=== PATIENT | female | born 1970 | race Caucasian/White ===

== ENCOUNTER 2022-04-07 22:03 | Inpatient (IN) ==
--- NOTE | 2022-04-07 22:55 | XRay Report ---
SINGLE VIEW CHEST CLINICAL HISTORY: Dyspnea. FINDINGS: An AP, portable, upright chest radiograph is obtained. No prior studies are available for c omparison at the time of dictation. The examination is degraded by portable technique and patient rot ation. The cardiomediastinal silhouette is partially obscured. There are multifocal bilateral airspa ce opacities. No large pleural effusion or pneumothorax is seen. The skeletal structures are osteopen ic. The bony thorax is grossly intact. Fusion hardware is noted at the cervicothoracic junction. IMPRESSION: Multifocal bilateral airspace opacities could represent pulmonary edema and/or multifocal pneumonia. Clinical correlation will be required and radiographic follow-up to resolution is recomme nded. ACT 112: Negative or not required by law. Electronically signed by: Jimmy Braun M.D. 04/07/2022 10:54 PM
[2022-04-07 23:07] LABS: Hematocrit (blood only) 38.4 % (34.1-44.9); Hemoglobin 13.4 g/dl (12.0-16.0); Mean Corpuscular Hemoglobin 30.4 pg (25.0-34.0); Mean Corpuscular Hgb Conc 34.9 g/dL (32.0-36.0); Mean Corpuscular Volume 87.1 fL (80.0-100.0); Mean Platelet Volume 9.1 fL (9.4-12.3); Platelet Count 257 K/uL (130-400); RDW Coefficient of Variation 12.8 % (11.5-14.5); RDW Standard Deviation 40.6 fL (36.4-46.3); Red Blood Count 4.41 M/uL (3.93-5.22); White Blood Count 14.29 K/ul (4.8-10.8)
[2022-04-07] MEDS ORDERED: ALBUT/IPRATROP 3MG/0.5MG NEB 3 ML VIAL NEB STA (23:08)
[2022-04-07] MEDS ORDERED: dexAMETHasone**PF** 10 MG/ML VIAL IV ONE (23:08)
[2022-04-07 23:26] LABS: Basophils # (auto) 0.02 K/uL (0-0.2); Basophils % (auto) 0.1 %; Immature Granulocytes # (auto) 0.13 K/uL (0.00-0.02); Immature Granulocytes % (auto) 0.9 %; Lymphocytes # (auto) 0.43 K/uL (1.2-3.4); Monocytes # (auto) 0.77 K/uL (0.24-0.82); Monocytes % (auto) 5.4 %; Neutrophils # (auto) 12.94 K/uL (1.4-6.5); Neutrophils % (auto) 90.6 %
[2022-04-07 23:32] LABS: Troponin I High Sensitivity 4.9 pg/ml (0-14)
[2022-04-07 23:35] LABS: Albumin Level 3.3 gm/dl (3.4-5.0); BUN Creatinine Ratio 22.7 (10-20); Bilirubin,Total 0.8 mg/dl (0.2-1.0); Calcium 8.3 mg/dl (8.5-10.1); Creatinine Clr Calc Pharmacy 165.5 ml/min; Est GFR (African American) 135.5 ml/min; Est GFR (Non-African American) 116.9 ml/min; Globulin 3.2 gm/dl (2.5-4.0); Magnesium 1.8 mg/dl (1.7-2.4); Potassium 3.9 mmol/L (3.5-5.1); Total Protein 6.5 gm/dl (6.0-8.3)
[2022-04-07] MEDS ORDERED: VANCOMYCIN CONSULT ACTIVE PRN (23:43)
[2022-04-07] MEDS ORDERED: SODIUM CHLORIDE 0.9% 1000ML 1,000 ML IV STA (23:43)
[2022-04-07] MEDS ORDERED: SODIUM CHLORIDE 0.9% 1000ML 500 ML IV ONE (23:43)
[2022-04-07] MEDS ORDERED: CEFEPIME 2,000 MG/20 ML VIAL IV STA (23:43)
[2022-04-07] MEDS ORDERED: DEXTROSE 50% 50 ML SYRINGE IV ONE (23:56)
--- NOTE | 2022-04-07 23:56 | Emergency Department Note ---
Impression & Plan COVID-19, Hypoxia, Pneumonia, Acute dehydration, Acute hyponatremia ED Provider Note INFORMANT: Patient ED PROVIDER(S): Miguel Natarajan MD CHIEF COMPLAINT: Shortness of breath PLAN: Disposition: Admitted Condition: Guarded Outpatient prescription management: none Referral: None MEDICAL DECISION MAKING: Patient presented because of shortness of breath. She had hypoxia that responded to high flow supplemental oxygen. The patient had a chest x-ray performed and was found to have multifocal pneumonia. She was recently diagnosed with COVID-19. This is very concerning. She was given IV Decadron and a DuoNeb. She was hydrated. On reassessment she did feel better. Oxygen saturations were holding stable. Chemistry panel did reveal hyponatremia as well as hypoglycemia. Recheck of the blood sugar revealed the hypoglycemia did be corrected. Patient did not receive any dextrose. Patient was found to have a moderate leukocytosis. Given her recent hospitalizations, leukocytosis and x- ray finding there was concern for possible secondary bacterial infection. Patient was covered with cefepime and vancomycin after blood cultures. CT of the chest was ordered. Patient will need further management in the hospital. Consultation was made with Dr. Anoop James of the [facility] service. He did request an ABG and this was ordered. Patient was evaluated in the ER for further management. Triage Nursing notes reviewed and agree them. Vital Signs: reviewed and remarkable for no significant abnormalities Differential diagnosis: COVID, Reactive airway disease, pneumonia, pneumothorax, COPD, CHF, infections, cardiac ischemia, pulmonary embolism, musculoskeletal, gastrointestinal, as well as other pathologies. Diagnostics interpreted by me: EC Lead ECG performed and revealed Normal sinus rhythm at 80, normal [place], QRS normal. No elevation or depression. No PACs or PVCs. Poor baseline data does affect interpretation. Cardiac Monitoring: Cardiac monitoring ordered by me: The patient was placed on continuous cardiac monitoring and observed. It revealed a normal sinus rhythm at 82 beats per minute without ectopy or evidence of dysrhythmia. Imaging studies: Chest x-ray concerning for multifocal pneumonia. CT imaging pending. HPI: The patient is a 52year old female who presents to the Emergency Room with complaints of shortness of breath. This started a few days ago and is felt to related to her recent COVID diagnosis. The patient was in [facility] and transferred to [facility] because of cerebral palsy and extremity/joint issues. She was exposed to COVID in her hospitalization at [place]. She became symptomatic about 3 to 4 days ago. She was found to have increased work of breathing and was 85% on room air per staff at rehab. She did respond to supplemental oxygen via a nonrebreather. Upon arrival here the patient was requiring 6 L of nasal cannula to maintain oxygen saturations in the 95% range. Patient does note history of COPD. The patient also notes the following associated symptoms, fatigue. The patient has also treated with an albuterol neb relieving factors. Current pain is rated as 0/10. Pt denies LOC, headache, fevers, chills, diaphoresis, visual changes, neck pain, chest pain, nausea, vomiting, abdominal pain, back pain, diarrhea urinary symptoms, numbness, new weakness, lymphadenopathy, rash, or other complaints. ROS: See above HPI for pertinent positives & negatives. A total of 10 systems reviewed and were otherwise negative. PAST MEDICAL HISTORY:See Below , cerebral palsy, COPD PAST SURGICAL HISTORY:See Below, FAMILY HISTORY:See Below SOCIAL HISTORY:See Below, smoker HOME MEDICATIONS:See Below ALLERGIES:See Below VITALS:See Below PHYSICAL EXAMINATION: GENERAL: Awake, alert, mild dyspneic-appearing, in no distress HENT: Normocephalic, atraumatic. Oropharynx unremarkable. EYES: Normal conjunctiva. Sclera non-icteric. NECK: Inspection normal. Non-tender. Supple. No nuchal rigidity. FROM. No masses. RESPIRATORY: No wheezes. Moderate bilateral scattered rales. Increased respiratory effort. CARDIAC: Normal rate. Normal rhythm. No murmurs. No rubs. Extremities warm and well perfused. Pulses equal. No JVD. GI: Soft, non-distended. No tenderness to palpation. No rebound or guarding. No masses. RECTAL: Deferred. MUSCULOSKELETAL: Atraumatic. Chest examination reveals no tenderness. The back is symmetrical on inspection without obvious abnormality. There is no CVA tenderness to palpation. No joint edema. LOWER EXTREMITIES: Calves are equal size bilaterally and non-tender. No edema. No discoloration. There is limited range of motion of the left hip which the patient states it is chronic. She also has difficulty bending the left knee due to contracture. There is moderate contractures noted in the right upper extre mity. NEURO: Relatively normal sensorium. No sensory or motor deficits noted. SKIN: No rash or jaundice noted. Miguel Natarajan MD Past Med/Surg History Social History Smoking Status: Former smoker Tobacco Type: Cigarettes Feels Safe at Home: Yes Results & Data (ED) Vital Signs Vital Signs - 24 hr 04/07/22 21:55 04/07/22 22:08 04/07/22 22:08 Temperature 36.8 C Temperature Source Oral Pulse Rate 81 Pulse Rate [Apical] Respiratory Rate 26 H Respiratory Effort / Characteristics Non-Labored Spontaneous Labored [place] Respiratory Depth Normal Deep Respiratory Pattern Regular Tachypnea Blood Pressure 97/64 L Blood Pressure [Right Arm] Blood Pressure Mean 75 Blood Pressure Mean [Right Arm] Pulse Oximetry 98 98 Oxygen Delivery Method Non-rebreather Non-rebreather Nasal Cannula Oxygen Flow Rate 10 10 6 Sepsis Recent Fever Within 48 Hours No Sepsis New/Unexplained Change in Mental Status No Sepsis Action Taken by Nursing No Action Required 04/07/22 22:08 04/07/22 22:15 04/08/22 00:08 Temperature Temperature Source Pulse Rate Pulse Rate [Apical] 79 82 Respiratory Rate 22 18 Respiratory Effort / Characteristics Respiratory Depth Respiratory Pattern Blood Pressure Blood Pressure [Right Arm] 111/50 L 138/78 Blood Pressure Mean Blood Pressure Mean [Right Arm] 70 98 Pulse Oximetry 98 98 93 Oxygen Delivery Method Nasal Cannula Nasal Cannula Oxygen Flow Rate 6 3 Sepsis Recent Fever Within 48 Hours Sepsis New/Unexplained Change in Mental Status Sepsis Action Taken by Nursing Laboratory Data Result diagrams: 04/07/22 22:55 04/07/22 22:55 Lab Results 04/07/22 04/07/22 04/07/22 Range/Units 22:55 22:55 22:55 WBC 14.29 H (4.8-10.8) K/ul RBC 4.41 (3.93-5.22) M/uL Hgb 13.4 (12.0-16.0) g/dl Hct 38.4 (34.1-44.9) % MCV 87.1 (80.0-100.0) fL MCH 30.4 (25.0-34.0) pg MCHC 34.9 (32.0-36.0) g/dL RDW Std Deviation 40.6 (36.4-46.3) fL RDW Coeff of Ronaldo 12.8 (11.5-14.5) % Plt Count 257 (130-400) K/uL MPV 9.1 L (9.4-12.3) fL Immature Gran % (Auto) 0.9 % Neut % (Auto) 90.6 % Lymph % (Auto) 3.0 % Daggett % (Auto) 5.4 % Eos % (Auto) 0.0 % Baso % (Auto) 0.1 % Neut # (Auto) 12.94 H (1.4-6.5) K/uL Lymph # (Auto) 0.43 L (1.2-3.4) K/uL Daggett # (Auto) 0.77 (0.24-0.82) K/uL Eos # (Auto) 0.00 (0-0.50) K/uL Baso # (Auto) 0.02 (0-0.2) K/uL Immature Gran # (Auto) 0.13 H (0.00-0.02) K/uL Sodium 127 L (136-145) mmol/L Potassium 3.9 (3.5-5.1) mmol/L Chloride 96 L (98-107) mmol/L Carbon Dioxide 20 L (21-32) mmol/L Anion Gap 11 (3-11) BUN 10 (6-23) mg/dl Creatinine 0.44 L (0.6-1.2) mg/dl Est Cr Clr Drug Dosing 165.5 ml/min Est GFR ( Amer) 135.5 ml/min Est GFR (Non-Af Amer) 116.9 ml/min BUN/Creatinine Ratio 22.7 H (10-20) Glucose 62 L (70-99(Fasting)) mg/dl POC Glucose (70-99) mg/dl Calcium 8.3 L (8.5-10.1) mg/dl Magnesium 1.8 (1.7-2.4) mg/dl Total Bilirubin 0.8 (0.2-1.0) mg/dl AST 40 H (13-39) U/L ALT 41 (7-52) U/L Alkaline Phosphatase 131 H (34-104) U/L Troponin I High Sens 4.9 (0-14) pg/ml B-Natriuretic Peptide 103 H (0-100) pg/ml Total Protein 6.5 (6.0-8.3) gm/dl Albumin 3.3 L (3.4-5.0) gm/dl Globulin 3.2 (2.5-4.0) gm/dl Albumin/Globulin Ratio 1.0 (0.9-2) Procalcitonin (0-0.5) ng/ml Adenovirus (PCR) (NotDetected) B. pertussis DNA (PCR) (NotDetected) B.parapertussis DNA PCR (NotDetected) C. pneumoniae DNA (PCR) (NotDetected) Coronavirus OC43 (PCR) (NotDetected) Coronavirus HKU1 (PCR) (NotDetected) Coronavirus 229E (PCR) (NotDetected) SARS-CoV-2 (PCR) (NotDetected) Coronavirus NL63 (PCR) (NotDetected) Human Metapneumovir PCR (NotDetected) Influenza Type A (PCR) (NotDetected) Influenza Type B (PCR) (NotDetected) M. pneumoniae (PCR) (NotDetected) Parainfluenza 1 (PCR) (NotDetected) Parainfluenza 2 (PCR) (NotDetected) Parainfluenza 3 (PCR) (NotDetected) Parainfluenza 4 (PCR) (NotDetected) RSV (PCR) (NotDetected) Entero/Rhino (PCR) (NotDetected) 04/07/22 04/07/22 04/08/22 Range/Units 22:55 22:55 00:02 WBC (4.8-10.8) K/ul RBC (3.93-5.22) M/uL Hgb (12.0-16.0) g/dl Hct (34.1-44.9) % MCV (80.0-100.0) fL MCH (25.0-34.0) pg MCHC (32.0-36.0) g/dL RDW Std Deviation (36.4-46.3) fL RDW Coeff of Ronaldo (11.5-14.5) % Plt Count (130-400) K/uL MPV (9.4-12.3) fL Immature Gran % (Auto) % Neut % (Auto) % Lymph % (Auto) % [place] % (Auto) % Eos % (Auto) % Baso % (Auto) % Neut # (Auto) (1.4-6.5) K/uL Lymph # (Auto) (1.2-3.4) K/uL [place] # (Auto) (0.24-0.82) K/uL Eos # (Auto) (0-0.50) K/uL Baso # (Auto) (0-0.2) K/uL Immature Gran # (Auto) (0.00-0.02) K/uL Sodium (136-145) mmol/L Potassium (3.5-5.1) mmol/L Chloride (98-107) mmol/L Carbon Dioxide (21-32) mmol/L Anion Gap (3-11) BUN (6-23) mg/dl Creatinine (0.6-1.2) mg/dl Est Cr Clr Drug Dosing ml/min Est GFR ( Amer) ml/min Est GFR (Non-Af Amer) ml/min BUN/Creatinine Ratio (10-20) Glucose (70-99(Fasting)) mg/dl POC Glucose 80 (70-99) mg/dl Calcium (8.5-10.1) mg/dl Magnesium (1.7-2.4) mg/dl Total Bilirubin (0.2-1.0) mg/dl AST (13-39) U/L ALT (7-52) U/L Alkaline Phosphatase (34-104) U/L Troponin I High Sens (0-14) pg/ml B-Natriuretic Peptide (0-100) pg/ml Total Protein (6.0-8.3) gm/dl Albumin (3.4-5.0) gm/dl Globulin (2.5-4.0) gm/dl Albumin/Globulin Ratio (0.9-2) Procalcitonin 0.11 (0-0.5) ng/ml Adenovirus (PCR) Not Detected (NotDetected) B. pertussis DNA (PCR) Not Detected (NotDetected) B.parapertussis DNA PCR Not Detected (NotDetected) C. pneumoniae DNA (PCR) Not Detected (NotDetected) Coronavirus OC43 (PCR) Not Detected (NotDetected) Coronavirus HKU1 (PCR) Not Detected (NotDetected) Coronavirus 229E (PCR) Not Detected (NotDetected) SARS-CoV-2 (PCR) DETECTED A* (NotDetected) Coronavirus NL63 (PCR) Not Detected (NotDetected) Human Metapneumovir PCR Not Detected (NotDetected) Influenza Type A (PCR) Not Detected (NotDetected) Influenza Type B (PCR) Not Detected (NotDetected) M. pneumoniae (PCR) Not Detected (NotDetected) Parainfluenza 1 (PCR) Not Detected (NotDetected) Parainfluenza 2 (PCR) Not Detected (NotDetected) Parainfluenza 3 (PCR) Not Detected (NotDetected) Parainfluenza 4 (PCR) Not Detected (NotDetected) RSV (PCR) Not Detected (NotDetected) Entero/Rhino (PCR) Not Detected (NotDetected) Administered Medications Vancomycin HCl 1,750 mg/ (Sodium Chloride) 535 mls @ 200 mls/hr IV NOW ONE Stop: 04/08/22 02:23 Last Admin: 04/08/22 00:11 Dose: 200 mls/hr Documented By: BERNARDO Discontinued Medications Albuterol (Albut/Ipratrop 3mg/0.5mg Neb 3 Ml Vial) 3 ml NEB NOW STA; Protocol Stop: 04/07/22 23:09 Last Admin: 04/07/22 23:33 Dose: 3 ml Documented By: BERNARDO Dexamethasone Sodium Phosphate (DexamethasonePf 10 Mg/Ml Vial) 6 mg IV NOW ONE Stop: 04/07/22 23:09 Last Admin: 04/07/22 23:32 Dose: 6 mg Documented By: BERNARDO Dextrose (Dextrose 50% 50 Ml Syringe) 25 ml IV NOW ONE Stop: 04/07/22 23:57 Last Admin: 04/08/22 00:34 Dose: Not Given Documented By: BERNARDO Cefepime HCl (Maxipime) 2,000 mg in 20 mls @ 5 mls/min IV NOW STA; Protocol Stop: 04/07/22 23:46 Last Admin: 04/08/22 00:09 Dose: 5 mls/min Documented By: BERNARDO Imaging Data Radiologist's Impression: Chest X-Ray 04/07/22 22:15 SINGLE VIEW CHEST CLINICAL HISTORY: Dyspnea. FINDINGS: An AP, portable, upright chest radiograph is obtained. No prior david dies are available for comparison at the time of dictation. The examination is degraded by portable technique and patient rotation. The cardiomediastinal silhouette is partially obscured. There are multifocal bilateral airspace opacities. No large pleural effusion or pneumothorax is seen. The skeletal structures are osteopenic. The bony thorax is grossly intact. Fusion hardware is noted at the cervicothoracic junction. IMPRESSION: Multifocal bilateral airspace opacities could represent pulmonary edema and/or multifocal pneumonia. Clinical correlation will be required and radiographic follow-up to resolution is recommended. ACT 112: Negative or not required by law. Electronically signed by: Jimmy Braun M.D. 04/07/2022 10:54 PM Discharge Plan Visit Data Chief Complaint: Shortness of Breath/Dyspnea Stated Complaint: COVID +/BREATHING DIFFICULTY ED Provider: Miguel Natarajan Discharge Problem: COVID-19, Hypoxia, Pneumonia, Acute dehydration, Acute hyponatremia Forms Stand Alone Forms: [facility] Referrals Referrals: Germain Skaggs MD [Primary Care Provider] -
[2022-04-07 23:57] LABS: Adenovirus PCR Not Detected (NotDetected); Bordetella parapertussis PCR Not Detected (NotDetected); Bordetella pertussis PCR Not Detected (NotDetected); Chlamydia pneumoniae PCR Not Detected (NotDetected); Coronavirus 229E PCR Not Detected (NotDetected); Coronavirus HKU1 PCR Not Detected (NotDetected); Coronavirus NL63 PCR Not Detected (NotDetected); Coronavirus OC43PCR Not Detected (NotDetected); Human Metapneumovirus PCR Not Detected (NotDetected); Influenza A PCR Not Detected (NotDetected); Influenza B PCR Not Detected (NotDetected); Mycoplasma pneumoniae PCR Not Detected (NotDetected); Parainfluenza Virus 1 PCR Not Detected (NotDetected); Parainfluenza Virus 2 PCR Not Detected (NotDetected); Parainfluenza Virus 3 PCR Not Detected (NotDetected); Parainfluenza Virus 4 PCR Not Detected (NotDetected); Respiratory Syncytial VirusPCR Not Detected (NotDetected); Rhinovirus/Enterovirus PCR Not Detected (NotDetected)
[2022-04-08 00:06] LABS: Coronavirus CoV-2 (COVID19)PCR DETECTED (NotDetected)
[2022-04-08] MEDS: VANCOMYCIN HCL 1,750 MG in SODIUM CHLORIDE 0.9% 500 ML IV ONE ×2 (00:11→01:42)
[2022-04-08] MEDS ORDERED: REMDESIVIR 200 MG in SODIUM CHLORIDE 0.9% 210 ML IV STA (00:41)
--- NOTE | 2022-04-08 01:27 | CT Scan Report ---
CT SCAN OF THE CHEST WITHOUT IV CONTRAST CLINICAL HISTORY: Covid pneumonia. COMPARISON STUDY: Chest x-ray dated 04/07/2022. TECHNIQUE: CT scan of the thorax was performed from the thoracic inlet to the upper abdomen. Images are reviewed in the axial, sagittal, and coronal planes. IV contrast was not administered for this ex amination as per the referring clinician. A dose lowering technique was utilized adhering [facility]. The examination is degraded by suboptimal patient positioning, motion, and streak a rtifact from metallic spinal hardware and the patient's arms which could not be elevated above the est. CT DOSE: 837.18 mGy.cm FINDINGS: Thyroid: Imaged portions of the thyroid gland are normal in size and attenuation. Thoracic aorta: The thoracic aorta is normal in caliber and demonstrates standard 3-vessel arch anato my. Heart: The heart is normal in size and without pericardial effusion. Lungs and pleural spaces: Evaluation of the lung parenchyma is significantly degraded by motion artif act. Mild emphysematous change is suggested at the apices. The trachea and central airways appear william ar. Multifocal groundglass consolidation is seen throughout both lungs, left significantly greater th an right. There are trace pleural effusions. Mediastinum: Mildly enlarged mediastinal lymph nodes measure up to 13 mm in short axis. Quin: Not well assessed without IV contrast. Axillae: There is no axillary lymphadenopathy. Upper abdomen: There is a moderate hiatal hernia. The distal esophagus is distended and filled with f luid. Cholecystectomy clips are noted. Skeletal structures: The skeletal structures are osteopenic. No lytic or blastic bony lesions are see n. Degenerative change and scoliosis is noted in the thoracic spine. Fusion hardware is noted at the cervicothoracic junction. IMPRESSION: 1. Severely streak and motion compromised examination. 2. Multifocal groundglass consolidation is seen throughout both lungs, left significantly greater mona n right. This likely represents an infectious/inflammatory pneumonitis. Clinical correlation will be required and radiographic follow-up to resolution is recommended. 3. Trace pleural effusions. 4. There is a moderate hiatal hernia and the distal esophagus is distended with fluid. Note that this may place the patient at risk for aspiration. 5. Additional findings as above. ACT 112: Negative or not required by law. Electronically signed by: Jimmy Braun M.D. 04/08/2022 1:24 AM
[2022-04-08] MEDS ORDERED: NSS + 20MEQ KCL 20 MEQ/1,000 ML BAG IV SCH (02:59)
[2022-04-08] MEDS ORDERED: VANCOMYCIN CONSULT ACTIVE PRN (02:59)
[2022-04-08] MEDS ORDERED: ONDANSETRON INJ 2 MG/ML 2 ML VIAL IV PRN (02:59)
[2022-04-08] MEDS ORDERED: ACETAMINOPHEN 325 MG TAB PO PRN (02:59)
--- NOTE | 2022-04-08 03:10 | History & Physical Report ---
Date of Service April 08, 2022 Assessment & Plan (1) Acute respiratory failure with hypoxia: Plan: Acute respiratory failure with hypoxia/COVID-19 infection/secondary bacterial pneumonia, left>> right/COPD- From the ED given dexamethasone 6 mg IV, vancomycin IV, cefepime IV and a DuoNeb treatment Dexamethasone 6 mg IV daily Remdesivir IV per protocol Vancomycin IV per pharmacokinetic monitoring Zosyn 4.5 g IV every 8 hours Guaifenesin extended release 12 mg p.o. twice daily Ventolin HFA 2 puffs 4 times daily, and every 2 hours as needed Nasal cannula oxygen, titrate to keep pulse ox 94-95% (2) COVID-19: (3) Bilateral pneumonia: (4) Acute hyponatremia: Plan: Sodium 127 upon admission Likely due to overall decreased oral intake due to illness NSS + KCl 20 milliequivalents at 80 mils per hour x1 L Repeat laboratories in a.m. (5) Cerebral palsy: Plan: Continue supportive medications (6) COPD (chronic obstructive pulmonary disease): (7) Seizure disorder: Plan: Seizure disorder/anxiety depression/bipolar disorder/PTSD- Continue repeat protozoal, bupropion, fluoxetine, gabapentin, hydroxyzine, lamotrigine, Vyvanse, (8) Anxiety with depression: (9) Bipolar disorder: (10) PTSD (post-traumatic stress disorder): (11) GERD (gastroesophageal reflux disease): Plan: Continue pantoprazole History of Present Illness Chief Complaint: The patient is referred to the emergency department from [facility] rehab facility due to shortness of breath and hypoxia, with recent diagnosis of COVID- 19 infection Primary Care Provider: Germain Skaggs MD The patient is a 52-year-old female with a past medical history including cerebral palsy, left femur fracture, COPD, tobacco use, seizure disorder, anxiety, depression, bipolar disorder, PTSD, GERD and recent COVID-19 diagnosis. The patient had been admitted to [facility] due to left femur fracture from approximately March 14 through March 30, and was then sent to [facility] rehab in [place]. During the time when she was at [facility], she was exposed to COVID-19, however, she did not have any symptoms until about 3 to 4 days ago. Since that time she been having worsening shortness of breath and dyspnea on exertion. Repeat COVID-19 test in the emergency department was positive this evening. Other significant abnormal laboratories: WBC 14.29, sodium 127, glucose 62, AST 40, albumin 3.3. Chest x-ray showed an extensive left lower lobe infiltrate and a smaller right lower lobe infiltrate. From the emergency department the patient received the following: DuoNeb, dexamethasone 6 mg IV, vancomycin IV, cefepime IV, normal saline 500 mL bolus. Allergies Allergy/AdvReac Type Severity Reaction Status Date / Time No Known Allergies Allergy Unverified 04/08/22 01:57 Home Medications Medication Instructions Recorded Confirmed Type Liquid Multivitamin 15 ml PO DAILY 04/08/22 04/08/22 History Magnesium Buffered 600 mg PO DAILY 04/08/22 04/08/22 History [place] Woman 2 ea PO DAILY 04/08/22 04/08/22 History Saccharomyces boulardii 250 mg 250 mg PO DAILY 04/08/22 04/08/22 History capsule acetaminophen 325 mg tablet 650 mg PO Q4 PRN pain scale 1-3 04/08/22 04/08/22 History (Tylenol) albuterol sulfate 90 mcg/actuation 2 puff inhalation Q4 04/08/22 04/08/22 History aerosol inhaler aripiprazole 20 mg tablet 20 mg PO DAILY 04/08/22 04/08/22 History ascorbic acid (vitamin C) 1,000 mg 1 g PO DAILY 04/08/22 04/08/22 History tablet baclofen 10 mg tablet 10 mg PO TID 04/08/22 04/08/22 History bupropion HCl 300 mg 24 hr tablet, 300 mg PO DAILY 04/08/22 04/08/22 History extended release cefdinir 300 mg capsule 300 mg PO ONCE 04/08/22 04/08/22 History cholecalciferol (vitamin D3) 50 50 mcg PO DAILY 04/08/22 04/08/22 History mcg (2,000 unit) capsule (Vitamin D3) cyclobenzaprine 10 mg tablet 10 mg PO Q8 04/08/22 04/08/22 History dextromethorphan-guaifenesin 20 105 ml PO Q6 04/08/22 04/08/22 History mg-200 mg/10 mL oral liquid in packet docusate sodium 100 mg capsule 100 mg PO BID 04/08/22 04/08/22 History doxycycline hyclate 100 mg capsule 100 mg PO ONCE 04/08/22 04/08/22 History enoxaparin 40 mg/0.4 mL 40 mg subcut DAILY 04/08/22 04/08/22 History subcutaneous syringe fluoxetine 40 mg capsule 40 mg PO BID 04/08/22 04/08/22 History gabapentin 400 mg capsule 400 mg PO BID 04/08/22 04/08/22 History hydroxyzine HCl 25 mg tablet 25 mg PO QID PRN Anxiety 04/08/22 04/08/22 History lamotrigine 150 mg tablet 150 mg PO Q12 04/08/22 04/08/22 History (Lamictal) lidocaine 5 % topical patch 1 patch transdermal QAM 04/08/22 04/08/22 History lisdexamfetamine 40 mg capsule 40 mg PO DAILY 04/08/22 04/08/22 History (Vyvanse) magnesium oxide 400 mg PO QAM 04/08/22 04/08/22 History methocarbamol 500 mg tablet 1,000 mg PO QID 04/08/22 04/08/22 History nicotine 14 mg/24 hr daily 1 patch transdermal DAILY 04/08/22 04/08/22 History transdermal patch ondansetron 4 mg disintegrating 4 mg PO Q4 PRN Nausea or Vomiting 04/08/22 04/08/22 History tablet oxycodone 7.5 mg tablet,oral ONLY 7.5 mg PO Q6H 04/08/22 04/08/22 History (not for feeding tubes) pantoprazole 40 mg tablet,delayed 40 mg PO DAILYBB 04/08/22 04/08/22 History release polyethylene glycol 3350 17 17 g PO .Q LUNCH PRN Constipation 04/08/22 04/08/22 History gram/dose oral powder (Miralax) sennosides 8.6 mg-docusate sodium 12 tab-cap PO DAILY 04/08/22 04/08/22 History 50 mg tablet (Senna with Docusate Sodium) tiotropium 2.5 mcg-olodaterol 2.5 2 puff inhalation DAILY 04/08/22 04/08/22 History mcg/actuation mist for inhalation (Stiolto Respimat) Past Med/Surg History Medical History (Updated 04/08/22 @ 03:04 by Anoop James MD) Anxiety with depression Bipolar disorder Cerebral palsy COPD (chronic obstructive pulmonary disease) GERD (gastroesophageal reflux disease) PTSD (post-traumatic stress disorder) Seizure disorder Social History Smoking Status: Former smoker Tobacco Type: Cigarettes Feels Safe at Home: Yes Review of Systems Review of Systems: The patient denies chest pain, palpitations, lower extremity swelling, sore throat, fevers, chills, sweats, nausea, vomiting, diarrhea , constipation, abdominal pain, pelvic pain, blood in urine or stool, dysuria, urinary frequency or urgency, loss of consciousness, rash, generalized arthralgias or myalgias, back or neck pain, or night sweats. The review of systems is otherwise negative other than for that already noted above, and at least 10 systems have been reviewed. Physical Exam 2 Physical Exam: The patient is awake, alert, well-developed and well-nourished, normocephalic and atraumatic, lying in bed and in no acute distress. HEENT--PERRL, EOMI, mucous membranes and oropharynx normal. Neck--supple. No JVD. No bruits. Thyroid normal, trachea midline, no adenopathy. Heart--normal S1 and S2, no murmurs rubs or gallops. Lungs--coarse breath sounds left significantly greater than right base. No respiratory distress, no accessory muscle use. Abdomen--normal bowel sounds and soft. Nontender. Nondistended, no hernias or masses, no organomegaly. Extremities--no cyanosis or clubbing. No edema. Dermatologic--normal skin turgor, normal color, no abnormal lymph nodes, no rash. Neurologic--limited exam Rheumatologic--limited exam Psychiatric--cooperative. Results & Data Results & Data ([facility]) Vital Signs (Past 12 Hours) Vital Signs Temp Pulse Pulse Resp BP BP Pulse Ox 04/08/22 01:00 76 17 102/54 L 93 04/08/22 00:08 82 18 138/78 93 04/07/22 22:15 98 04/07/22 22:08 79 22 111/50 L 98 04/07/22 22:08 98 04/07/22 22:08 04/07/22 21:55 36.8 C 81 26 H 97/64 L 98 O2 Del Method O2 Flow Rate 04/08/22 01:00 Nasal Cannula 3 04/08/22 00:08 Nasal Cannula 3 04/07/22 22:15 Nasal Cannula 6 04/07/22 22:08 04/07/22 22:08 Nasal Cannula 6 04/07/22 22:08 Non-rebreather 10 04/07/22 21:55 Non-rebreather 10 Laboratory Results Laboratory Results WBC 14.29 K/ul (4.8-10.8) H 04/07/22 22:55 RBC 4.41 M/uL (3.93-5.22) 04/07/22 22:55 Hgb 13.4 g/dl (12.0-16.0) 04/07/22 22:55 Hct 38.4 % (34.1-44.9) 04/07/22 22:55 MCV 87.1 fL (80.0-100.0) 04/07/22 22:55 MCH 30.4 pg (25.0-34.0) 04/07/22 22:55 MCHC 34.9 g/dL (32.0-36.0) 04/07/22 22:55 RDW Std Deviation 40.6 fL (36.4-46.3) 04/07/22 22:55 RDW Coeff of Ronaldo 12.8 % (11.5-14.5) 04/07/22 22:55 Plt Count 257 K/uL (130-400) 04/07/22 22:55 MPV 9.1 fL (9.4-12.3) L 04/07/22 22:55 Immature Gran % (Auto) 0.9 % 04/07/22 22:55 Neut % (Auto) 90.6 % 04/07/22 22:55 Lymph % (Auto) 3.0 % 04/07/22 22:55 [place]ug[place] % (Auto) 5.4 % 04/07/22 22:55 Eos % (Auto) 0.0 % 04/07/22 22:55 Baso % (Auto) 0.1 % 04/07/22 22:55 Neut # (Auto) 12.94 K/uL (1.4-6.5) H 04/07/22 22:55 Lymph # (Auto) 0.43 K/uL (1.2-3.4) L 04/07/22 22:55 Refugio # (Auto) 0.77 K/uL (0.24-0.82) 11/26/22 22:55 Eos # (Auto) 0.00 K/uL (0-0.50) 04/07/22 22:55 Baso # (Auto) 0.02 K/uL (0-0.2) 04/07/22 22:55 Immature Gran # (Auto) 0.13 K/uL (0.00-0.02) H 04/07/22 22:55 Sodium 127 mmol/L (136-145) L 04/07/22 22:55 Potassium 3.9 mmol/L (3.5-5.1) 04/07/22 22:55 Chloride 96 mmol/L (98-107) L 04/07/22 22:55 Carbon Dioxide 20 mmol/L (21-32) L 04/07/22 22:55 Anion Gap 11 (3-11) 04/07/22 22:55 BUN 10 mg/dl (6-23) 04/07/22 22:55 Creatinine 0.44 mg/dl (0.6-1.2) L 04/07/22 22:55 Est Cr Clr Drug Dosing 165.5 ml/min 04/07/22 22:55 Est GFR ( Amer) 135.5 ml/min 04/07/22 22:55 Est GFR (Non-Af Amer) 116.9 ml/min 04/07/22 22:55 BUN/Creatinine Ratio 22.7 (10-20) H 04/07/22 22:55 Glucose 62 mg/dl (70-99(Fasting)) L 04/07/22 22:55 POC Glucose 80 mg/dl (70-99) 04/08/22 00:02 Calcium 8.3 mg/dl (8.5-10.1) L 04/07/22 22:55 Magnesium 1.8 mg/dl (1.7-2.4) 04/07/22 22:55 Total Bilirubin 0.8 mg/dl (0.2-1.0) 04/07/22 22:55 AST 40 U/L (13-39) H 04/07/22 22:55 ALT 41 U/L (7-52) 04/07/22 22:55 Alkaline Phosphatase 131 U/L (34-104) H 04/07/22 22:55 Troponin I High Sens 4.9 pg/ml (0-14) 04/07/22 22:55 B-Natriuretic Peptide 103 pg/ml (0-100) H 04/07/22 22:55 Total Protein 6.5 gm/dl (6.0-8.3) 04/07/22 22:55 Albumin 3.3 gm/dl (3.4-5.0) L 04/07/22 22:55 Globulin 3.2 gm/dl (2.5-4.0) 04/07/22 22:55 Albumin/Globulin Ratio 1.0 (0.9-2) 04/07/22 22:55 Procalcitonin 0.11 ng/ml (0-0.5) 04/07/22 22:55 Adenovirus (PCR) Not Detected (NotDetected) 04/07/22 22:55 B. pertussis DNA (PCR) Not Detected (NotDetected) 04/07/22 22:55 B.parapertussis DNA PCR Not Detected (NotDetected) 04/07/22 22:55 C. pneumoniae DNA (PCR) Not Detected (NotDetected) 04/07/22 22:55 Coronavirus OC43 (PCR) Not Detected (NotDetected) 04/07/22 22:55 Coronavirus HKU1 (PCR) Not Detected (NotDetected) 04/07/22 22:55 Coronavirus 229E (PCR) Not Detected (NotDetected) 04/07/22 22:55 SARS-CoV-2 (PCR) DETECTED (NotDetected) A* 04/07/22 22:55 Coronavirus NL63 (PCR) Not Detected (NotDetected) 04/07/22 22:55 Human Metapneumovir PCR Not Detected (NotDetected) 04/07/22 22:55 Influenza Type A (PCR) Not Detected (NotDetected) 04/07/22 22:55 Influenza Type B (PCR) Not Detected (NotDetected) 04/07/22 22:55 M. pneumoniae (PCR) Not Detected (NotDetected) 04/07/22 22:55 Parainfluenza 1 (PCR) Not Detected (NotDetected) 04/07/22 22:55 Parainfluenza 2 (PCR) Not Detected (NotDetected) 04/07/22 22:55 Parainfluenza 3 (PCR) Not Detected (NotDetected) 04/07/22 22:55 Parainfluenza 4 (PCR) Not Detected (NotDetected) 04/07/22 22:55 RSV (PCR) Not Detected (NotDetected) 04/07/22 22:55 Entero/Rhino (PCR) Not Detected (NotDetected) 04/07/22 22:55 Impressions Chest X-Ray 04/07/22 22:15 SINGLE VIEW CHEST CLINICAL HISTORY: Dyspnea. FINDINGS: An AP, portable, upright chest radiograph is obtained. No prior studies are available for comparison at the time of dictation. The examination is degraded by portable technique and patient rotation. The cardiomediastinal silhouette is partially obscured. There are multifocal bilateral airspace opacities. No large pleural effusion or pneumothorax is seen. The skeletal structures are osteopenic. The bony thorax is grossly intact. Fusion hardware is noted at the cervicothoracic junction. IMPRESSION: Multifocal bilateral airspace opacities could represent pulmonary edema and/or multifocal pneumonia. Clinical correlation will be required and radiographic follow-up to resolution is recommended. ACT 112: Negative or not required by law. Electronically signed by: Jimmy Braun M.D. 04/07/2022 10:[address] 04/08/22 01:01 CT SCAN OF THE CHEST WITHOUT IV CONTRAST CLINICAL HISTORY: Covid pneumonia. COMPARISON STUDY: Chest x-ray dated 04/07/2022. TECHNIQUE: CT scan of the thorax was performed from the thoracic inlet to the upper abdomen. Images are reviewed in the axial, sagittal, and coronal planes. IV contrast was not administered for this examination as per the referring clinician. A dose lowering technique was utilized adhering to the principles of ALARA. The examination is degraded by suboptimal patient positioning, motion, and streak artifact from metallic spinal hardware and the patient's arms which could not be elevated above the chest. CT DOSE: 837.18 mGy.cm FINDINGS: Thyroid: Imaged portions of the thyroid gland are normal in size and attenuation. Thoracic aorta: The thoracic aorta is normal in caliber and demonstrates standard 3-vessel arch anatomy. Heart: The heart is normal in size and without pericardial effusion. Lungs and pleural spaces: Evaluation of the lung parenchyma is significantly degraded by motion artifact. Mild emphysematous change is suggested at the apices. The trachea and central airways appear clear. Multifocal groundglass consolidation is seen throughout both lungs, left significantly greater than right. There are trace pleural effusions. Mediastinum: Mildly enlarged mediastinal lymph nodes measure up to 13 mm in short axis. Quin: Not well assessed without IV contrast. Axillae: There is no axillary lymphadenopathy. Upper abdomen: There is a moderate hiatal hernia. The distal esophagus is distended and filled with fluid. Cholecystectomy clips are noted. Skeletal structures: The skeletal structures are osteopenic. No lytic or blastic bony lesions are seen. Degenerative change and scoliosis is noted in the thoracic spine. Fusion hardware is noted at the cervicothoracic junction. IMPRESSION: 1. Severely streak and motion compromised examination. 2. Multifocal groundglass consolidation is seen throughout both lungs, left significantly greater than right. This likely represents an infectious/inflammatory pneumonitis. Clinical correlation will be required and radiographic follow-up to resolution is recommended. 3. Trace pleural effusions. 4. There is a moderate hiatal hernia and the distal esophagus is distended with fluid. Note that this may place the patient at risk for aspiration. 5. Additional findings as above. ACT 112: Negative or not required by law. Electronically signed by: Jimmy Braun M.D. 04/08/2022 1:24 AM Code Status & VTE Plan Code Status Full code VTE Prophylaxis Plan VTE Prophylaxis will be ordered: Yes
--- NOTE | 2022-04-08 03:11 | Billing Data ---
Date of Service April 08, 2022 Coding Level of Care Code 80769 Initial Inpt Care Lvl 3
[2022-04-08] MEDS: ALBUTEROL HFA 8 GM INHALER INH SCH ×4 (05:19→19:37)
[2022-04-08] MEDS: PIPERACILLIN/TAZOBACTAM 4.5 GM in DEXTROSE 5% 100 ML IV SCH ×3 (06:37→22:53)
--- NOTE | 2022-04-08 07:11 | Electrocardiogram Report ---
Test Reason : Blood Pressure : / mmHG Vent. Rate : 080 BPM Atrial Rate : 441 BPM P-R Int : 000 ms QRS Dur : 080 ms QT Int : 410 ms P-R-T Axes : 000 016 014 degrees QTc Int : 472 ms Poor data quality, interpretation may be adversely affected Sinus rhythm Cannot rule out Inferior infarct , age undetermined Abnormal ECG No previous ECGs available Confirmed by Aguilar Ayon ([id number]) on 04/08/2022 7:11:12 AM Referred By: REFERRED SELF Confirmed By:Jeremiah Ayon
[2022-04-08] MEDS: dexAMETHasone 6 MG in SYRINGE 0 ML IV SCH (07:52)
[2022-04-08] MEDS ORDERED: VANCOMYCIN HCL 1,500 MG in SODIUM CHLORIDE 0.9% 500 ML IV SCH (08:00)
[2022-04-08 08:56] LABS: HCO3 ABG 20 mmol/L (19-24); Oxygen Saturation ABG 94.2 % (90-95); PCO2 ABG 31 mmHg (35-46); PO2 ABG 64 mmHg (80-95); pH ABG 7.41 (7.35-7.45)
[2022-04-08 08:57] LABS: Allen Test Pos (Pos)
[2022-04-08] MEDS ORDERED: ENOXAPARIN INJ 40 MG/0.4 ML SYR SQ SCH (09:00)
[2022-04-08 09:19] LABS: Albumin Globulin Ratio 1.1 (0.9-2); Albumin Level 3.1 gm/dl (3.4-5.0); BUN Creatinine Ratio 23.7 (10-20); Bilirubin,Total 0.5 mg/dl (0.2-1.0); C Reactive Protein 25.06 mg/dl (0-0.5); Creatinine Clr Calc Pharmacy 191.6 ml/min; Est GFR (African American) 142.2 ml/min; Est GFR (Non-African American) 122.7 ml/min; Globulin 2.9 gm/dl (2.5-4.0); Potassium 3.8 mmol/L (3.5-5.1)
[2022-04-08] MEDS ORDERED: CHOLECALCIFEROL 1,000 UNITS 25 MCG TAB PO SCH (10:30)
--- NOTE | 2022-04-08 13:48 | Pharmacy Report ---
Pharmacy Vanc AUC Short Note - Date of Service April 08, 2022 - Assessment & Plan Assessment 52 year old F started on vancomycin/zosyn for concerns of COVID pneumonia. PMHx significant for cerebral palsy, COPD, tobacco use, seizure disorder, and recent COVID diagnosis. Previously admitted to [facility] for left femur fracture from 03/14 - 03/30 and then sent to [facility] rehab after. Day # 1 of antimicrobial therapy. Plan Vancomycin * AUC/FELI is the preferred PK/PD target for vancomycin * AUC guided dosing is effective and associated with decreased risk of nephrotoxicity compared to traditional trough targets * Loading dose of 1750 mg x 1 given early this AM in ER - was then started on vancomycin 1500 mg iv q 12 hrs * This dosing is estimated to produce a trough level of 17 mcg/mL is predicted to achieve target AUC/FELI of 400-600 mg/L.hr and may be associated with a 13 % risk of nephrotoxicity * Plan to obtain a level prior to the 0800 dose tomorrow to ensure stable. Zosyn - dosed appropriately for renal function Pharmacy will continue to follow and will adjust dose/frequency as necessary. Thank you.
[2022-04-08] MEDS ORDERED: ASCORBIC ACID 500 MG TAB PO SCH (15:30)
[2022-04-08] MEDS ORDERED: buPROPion XL 300 MG TABCR PO SCH (15:45)
[2022-04-08] MEDS ORDERED: NON-FORMULARY MEDICATION (Cholecalciferol (Vitamin D3) [Vitamin D3] 50 mcg (2,000 unit) Ca PO SCH (15:45)
[2022-04-08] MEDS ORDERED: FUROSEMIDE INJ 20 MG/2 ML VIAL IV ONE (15:49)
--- NOTE | 2022-04-08 16:02 | XRay Report ---
XR chest 1V portable HISTORY: 52 years-old Female COVID+, worsening hypoxia acute cough COMPARISON: Chest CT of same day TECHNIQUE: AP view of the chest FINDINGS: Cardiac silhouette is enlarged. Interstitial coarsening with ill-defined left greater than right airs pace opacities are again noted, not significantly changed. No pneumothorax, or large pleural effusion . Degenerative changes of the shoulders and spine. Cervical thoracic fusion hardware. Hiatal hernia. IMPRESSION: 1. Interstitial coarsening with stable ill-defined mid to lower lung zone predominant airspace opacit ies suggestive of an infectious or inflammatory pneumonitis. 2. Hiatal hernia. 3. Cardiomegaly. ACT 112: Negative or not required by law. The above report was generated using voice recognition software. It may contain grammatical, syntax o r spelling errors. Electronically signed by: Yovani Thomas M.D. 04/08/2022 4:00 PM
[2022-04-08] MEDS: PANTOprazole 40 MG TAB PO SCH (17:41)
[2022-04-08] MEDS: [UNRECOGNIZED DRUG - OTHER] PO SCH (17:42)
[2022-04-08] MEDS: NON-FORMULARY MEDICATION (Tiotropium-Olodaterol [Stiolto Respimat] 2.5-2.5 mcg/actuation M INH SCH (17:42)
[2022-04-08] MEDS: NICOTINE 14 MG/24 HR PATCH TD SCH (17:42)
[2022-04-08] MEDS: VITAMIN C 1000 MG PO SCH (17:46)
[2022-04-08] MEDS: ARIPiprazole 10 MG TAB PO SCH (17:57)
--- NOTE | 2022-04-08 19:55 | Hospitalist Progress Note ---
Date of Service April 08, 2022 Assessment & Plan (1) Acute respiratory failure with hypoxia: Plan: 2nd to COVID-19 pneumonia. Can't rule out element of acute CHF - JVD present on exam, mild elevation in BNP, etc. Previously was taking large doses of lasix at home. This is in setting of known COPD. Cont steroids, Remdesivir, etc for COVID-19 pneumonia. Stop IVF, dose of IV lasix now. Repeat cxr today. Supportive care. (2) Pneumonia due to COVID-19 virus: Plan: mod-severe clinically and radiographically. CRP = 25. Moderate O2 requirement today. Day #2 of 5 of IV Remdesivir. Day #2 of 10 of Dexamethasone 6mg daily. add flutter valve. add incentive lynn. cont side positioning. cont scheduled bronchodilators. repeat cxr today. cont airborne precautions. patient is about 4-5 days into her illness course. likely exposure to COVID while at [facility] (roommate tested + for COVID). stop IV vanco - MRSA swab neg procal neg today; repeat procal in AM; if still negative then stop IV zosyn repeat CRP am (3) Acute hyponatremia: Plan: Sodium 127 upon admission Appeared volume contracted and was given isotonic fluid Na improved to 130 with IVF ?mild overload now? stop IVF lasix 20mg IV x 1 repeat BMP am send Urine Na, Urine osm (4) Cerebral palsy: Plan: resume baclofen 10mg TID for LLE contracture patient has very little use of both legs - does not ambulate (5) COPD (chronic obstructive pulmonary disease): Plan: 2nd long-standing tobacco usage cont usual daily inhalers cont bronchodilators scheduled pulmonary toilet dexamethasone IV see above (6) Seizure disorder: Plan: in light of known seizure d/o would stop Wellbutrin Cont gabapentin Cont lamictal I spoke with pt's mother by phone - pt has had seizures for many years but has not had one in 2-3 years seizure precautions (7) Anxiety with depression: Plan: I received her med rec from [facility] Oddly her external med history from her pharmacy shows she only received refills up until 12/2021 on all meds but nothing since will need to call her providers and/or pharmacy to verify what she is actually taking in meantime resume - abilify 20mg daily prozac 40mg daily (supposed to be BID but will hold off until verification) lamictal 150mg BID STOP wellbutrin given known seizure d/o (8) Bipolar disorder: Plan: as above (9) PTSD (post-traumatic stress disorder): (10) GERD (gastroesophageal reflux disease): Plan: Continue pantoprazole (11) Vitamin D insufficiency: Plan: 25-OH level = 27 start vitamin D 2000 IU daily (12) Femur fracture, left: Plan: by report nonoperative was seen/evaluated at [facility] earlier this month for such (13) Contracture of muscle, left thigh: Plan: very oddly patient was taking baclofen, flexeril, and methocarbamol to avoid polypharmacy simply resume baclofen - hold the other meds (14) DVT prophylaxis: Plan: due to high risk nature of VTE in setting of bed-bound status, COVID, etc -- use lovenox 40mg BID Plan pt's mother updated extensively by phone mother lives in [place] - currently has COVID herself very complicated care coordination and management - review of med rec from [facility], prolonged bedside visit, teaching incentive lynn use, speaking with mother, etc -- 70 minutes of care time today Admission and Anticipated Discharge Date Admission Date: April 08, 2022 Subjective patient c/o feeling dyspneic while laying in bed she is coughing but it is mild at best she admits to feeling very anxious about being sick with COVID has not smoked since being admitted to [facility] earlier in the month has smoked for many years she c/o severe left leg pain and spasms - this was one of the reasons why she went to [facility] takes pain meds/muscle relaxers for her left leg - it is quite contracted during the visit I attempted to teach her how to use her incentive spirometer - it was very challenging for her telemetry overnight - wnl Review of Systems Review of Systems: gen - no fevers, no chills; very tired, poor appetite neuro - mild intermittent headache, severe contracture with spasms of left leg cv - no cp, no orthopnea pulm - dyspneic GI - no vomiting musculo - myalgias Physical Exam Physical Exam: gen - tachypneic, mild retractions, very anxious, c/o pain LLE mouth - MM slightly dry neck - JVD present heart - RRR, s1 s2, no murmur lungs - diffuse crackles R>L; no wheeze; tachypnea; subcostal retractions abd - soft NT ND BS+ ext - contracture of LLE, pulses 2+ b/l feet, no edema skin - no rash neuro - increased tone LLE psych - very anxious Results & Data Results & Data ([facility]) Vital Signs (Past 12 Hours) Vital Signs Temp Pulse Pulse Resp BP Pulse Ox O2 Del Method 04/08/22 15:07 36.7 C 82 20 127/75 90 Nasal Cannula 04/08/22 14:47 82 20 92 Nasal Cannula 04/08/22 12:00 36.7 C 82 20 160/90 H 90 Nasal Cannula 04/08/22 10:36 75 22 94 Nasal Cannula 04/08/22 09:00 77 04/08/22 09:00 Nasal Cannula O2 Flow Rate 04/08/22 15:07 5 04/08/22 14:47 5 04/08/22 12:00 3 04/08/22 10:36 2.5 04/08/22 09:00 04/08/22 09:00 3 Laboratory Results Laboratory Results - last 24 hr 04/07/22 04/07/22 04/07/22 22:55 22:55 22:55 WBC 14.29 H RBC 4.41 Hgb 13.4 Hct 38.4 MCV 87.1 MCH 30.4 MCHC 34.9 RDW Std Deviation 40.6 RDW Coeff of Ronaldo 12.8 Plt Count 257 MPV 9.1 L Immature Gran % (Auto) 0.9 Neut % (Auto) 90.6 Lymph % (Auto) 3.0 Routt % (Auto) 5.4 Eos % (Auto) 0.0 Baso % (Auto) 0.1 Neut # (Auto) 12.94 H Lymph # (Auto) 0.43 L Routt # (Auto) 0.77 Eos # (Auto) 0.00 Baso # (Auto) 0.02 Immature Gran # (Auto) 0.13 H ABG pH ABG pCO2 ABG pO2 ABG HCO3 ABG O2 Saturation ABG Base Excess Jefferson Test Oxygen Given Sodium 127 L Potassium 3.9 Chloride 96 L Carbon Dioxide 20 L Anion Gap 11 BUN 10 Creatinine 0.44 L Est Cr Clr Drug Dosing 165.5 Est GFR ( Amer) 135.5 Est GFR (Non-Af Amer) 116.9 BUN/Creatinine Ratio 22.7 H Glucose 62 L POC Glucose Osmolality Calcium 8.3 L Magnesium 1.8 Total Bilirubin 0.8 AST 40 H ALT 41 Alkaline Phosphatase 131 H Troponin I High Sens 4.9 C-Reactive Protein B-Natriuretic Peptide 103 H Total Protein 6.5 Albumin 3.3 L Globulin 3.2 Albumin/Globulin Ratio 1.0 25-OH Vitamin D Total Procalcitonin Nasal Screen MRSA (PCR) Adenovirus (PCR) B. pertussis DNA (PCR) B.parapertussis DNA PCR C. pneumoniae DNA (PCR) Coronavirus OC43 (PCR) Coronavirus HKU1 (PCR) Coronavirus 229E (PCR) SARS-CoV-2 (PCR) Coronavirus NL63 (PCR) Human Metapneumovir PCR Influenza Type A (PCR) Influenza Type B (PCR) M. pneumoniae (PCR) Parainfluenza 1 (PCR) Parainfluenza 2 (PCR) Parainfluenza 3 (PCR) Parainfluenza 4 (PCR) RSV (PCR) Entero/Rhino (PCR) 04/07/22 04/07/22 04/08/22 22:55 22:55 00:02 WBC RBC Hgb Hct MCV MCH MCHC RDW Std Deviation RDW Coeff of Ronaldo Plt Count MPV Immature Gran % (Auto) Neut % (Auto) Lymph % (Auto) Routt % (Auto) Eos % (Auto) Baso % (Auto) Neut # (Auto) Lymph # (Auto) Routt # (Auto) Eos # (Auto) Baso # (Auto) Immature Gran # (Auto) ABG pH ABG pCO2 ABG pO2 ABG HCO3 ABG O2 Saturation ABG Base Excess Jefferson Test Oxygen Given Sodium Potassium Chloride Carbon Dioxide Anion Gap BUN Creatinine Est Cr Clr Drug Dosing Est GFR ( Amer) Est GFR (Non-Af Amer) BUN/Creatinine Ratio Glucose POC Glucose 80 Osmolality Calcium Magnesium Total Bilirubin AST ALT Alkaline Phosphatase Troponin I High Sens C-Reactive Protein B-Natriuretic Peptide Total Protein Albumin Globulin Albumin/Globulin Ratio 25-OH Vitamin D Total Procalcitonin 0.11 Nasal Screen MRSA (PCR) Adenovirus (PCR) Not Detected B. pertussis DNA (PCR) Not Detected B.parapertussis DNA PCR Not Detected C. pneumoniae DNA (PCR) Not Detected Coronavirus OC43 (PCR) Not Detected Coronavirus HKU1 (PCR) Not Detected Coronavirus 229E (PCR) Not Detected SARS-CoV-2 (PCR) DETECTED A* Coronavirus NL63 (PCR) Not Detected Human Metapneumovir PCR Not Detected Influenza Type A (PCR) Not Detected Influenza Type B (PCR) Not Detected M. pneumoniae (PCR) Not Detected Parainfluenza 1 (PCR) Not Detected Parainfluenza 2 (PCR) Not Detected Parainfluenza 3 (PCR) Not Detected Parainfluenza 4 (PCR) Not Detected RSV (PCR) Not Detected Entero/Rhino (PCR) Not Detected 04/08/22 04/08/22 04/08/22 08:44 08:49 09:02 WBC RBC Hgb Hct MCV MCH MCHC RDW Std Deviation RDW Coeff of Ronaldo Plt Count MPV Immature Gran % (Auto) Neut % (Auto) Lymph % (Auto) Routt % (Auto) Eos % (Auto) Baso % (Auto) Neut # (Auto) Lymph # (Auto) Routt # (Auto) Eos # (Auto) Baso # (Auto) Immature Gran # (Auto) ABG pH 7.41 ABG pCO2 31 L ABG pO2 64 L ABG HCO3 20 ABG O2 Saturation 94.2 ABG Base Excess -4.0 Jefferson Test Pos Oxygen Given 3 Liters O2 Sodium 130 L Potassium 3.8 Chloride 102 Carbon Dioxide 18 L Anion Gap 10 BUN 9 Creatinine 0.38 L Est Cr Clr Drug Dosing 191.6 Est GFR ( Amer) 142.2 Est GFR (Non-Af Amer) 122.7 BUN/Creatinine Ratio 23.7 H Glucose 105 H POC Glucose Osmolality 271 L Calcium 8.0 L Magnesium Total Bilirubin 0.5 AST 35 ALT 36 Alkaline Phosphatase 123 H Troponin I High Sens C-Reactive Protein 25.06 H B-Natriuretic Peptide Total Protein 6.0 Albumin 3.1 L Globulin 2.9 Albumin/Globulin Ratio 1.1 25-OH Vitamin D Total Procalcitonin Nasal Screen MRSA (PCR) Adenovirus (PCR) B. pertussis DNA (PCR) B.parapertussis DNA PCR C. pneumoniae DNA (PCR) Coronavirus OC43 (PCR) Coronavirus HKU1 (PCR) Coronavirus 229E (PCR) SARS-CoV-2 (PCR) Coronavirus NL63 (PCR) Human Metapneumovir PCR Influenza Type A (PCR) Influenza Type B (PCR) M. pneumoniae (PCR) Parainfluenza 1 (PCR) Parainfluenza 2 (PCR) Parainfluenza 3 (PCR) Parainfluenza 4 (PCR) RSV (PCR) Entero/Rhino (PCR) 04/08/22 04/08/22 09:02 14:40 WBC RBC Hgb Hct MCV MCH MCHC RDW Std Deviation RDW Coeff of Ronaldo Plt Count MPV Immature Gran % (Auto) Neut % (Auto) Lymph % (Auto) Routt % (Auto) Eos % (Auto) Baso % (Auto) Neut # (Auto) Lymph # (Auto) Routt # (Auto) Eos # (Auto) Baso # (Auto) Immature Gran # (Auto) ABG pH ABG pCO2 ABG pO2 ABG HCO3 ABG O2 Saturation ABG Base Excess Jefferson Test Oxygen Given Sodium Potassium Chloride Carbon Dioxide Anion Gap BUN Creatinine Est Cr Clr Drug Dosing Est GFR ( Amer) Est GFR (Non-Af Amer) BUN/Creatinine Ratio Glucose POC Glucose Osmolality Calcium Magnesium Total Bilirubin AST ALT Alkaline Phosphatase Troponin I High Sens C-Reactive Protein B-Natriuretic Peptide Total Protein Albumin Globulin Albumin/Globulin Ratio 25-OH Vitamin D Total 27.7 L Procalcitonin Nasal Screen MRSA (PCR) Negative Adenovirus (PCR) B. pertussis DNA (PCR) B.parapertussis DNA PCR C. pneumoniae DNA (PCR) Coronavirus OC43 (PCR) Coronavirus HKU1 (PCR) Coronavirus 229E (PCR) SARS-CoV-2 (PCR) Coronavirus NL63 (PCR) Human Metapneumovir PCR Influenza Type A (PCR) Influenza Type B (PCR) M. pneumoniae (PCR) Parainfluenza 1 (PCR) Parainfluenza 2 (PCR) Parainfluenza 3 (PCR) Parainfluenza 4 (PCR) RSV (PCR) Entero/Rhino (PCR) PG Care Time/CCT Total # of Minutes Spent Total Time Spent with Patient: Total time spent is greater than 50% in coordination of care (as documented) at patient's floor/unit and/or counseling patient: Prolonged Care Time Prolonged Care Time: Yes Total Prolonged Care Time: 70 Coding Level of Care Code 12611 Subseq Hosp Care Lvl 3 (25 - SIGNIFICANT, SEPARATELY IDENTIFIABLE ) Diagnoses Acute respiratory failure with hypoxia J96.01 Pneumonia due to COVID-19 virus U07.1; J12.82 Acute hyponatremia E87.1 Cerebral palsy G80.9 COPD (chronic obstructive pulmonary disease) J44.9 Seizure disorder G40.909 Anxiety with depression F41.8 Bipolar disorder F31.9 PTSD (post-traumatic stress disorder) F43.10 GERD (gastroesophageal reflux disease) K21.9 Vitamin D insufficiency E55.9 Femur fracture, left S72.92XA Contracture of muscle, left thigh M62.452 DVT prophylaxis Z29.9 Additional Codes Prolonged Care Time - Prolonged Care Time: Yes ([id number])
[2022-04-08] MEDS: BACLOFEN 10 MG TAB PO SCH ×3 (20:37→20:51)
[2022-04-08] MEDS: GABAPENTIN 400 MG CAP PO SCH (20:38)
[2022-04-08] MEDS: lamoTRIgine 25 MG TAB PO SCH (20:39)
[2022-04-08] MEDS: lamoTRIgine 100 MG TAB PO SCH (20:39)
[2022-04-08] MEDS: ENOXAPARIN INJ 40 MG/0.4 ML SYR SQ SCH (20:40)
[2022-04-08] MEDS ORDERED: GABAPENTIN 400 MG CAP PO SCH (21:00)
[2022-04-08] MEDS ORDERED: FLUoxetine HCL 20 MG CAP PO SCH (21:00)
[2022-04-08] MEDS ORDERED: LAMOTRIGINE 150 MG PO SCH (21:00)
[2022-04-09] MEDS ORDERED: KETOROLAC TROMETHAMINE 15 MG/ML VIAL IV ONE (01:08)
[2022-04-09] MEDS: PIPERACILLIN/TAZOBACTAM 4.5 GM in DEXTROSE 5% 100 ML IV SCH (05:22)
[2022-04-09] MEDS: ALBUTEROL HFA 8 GM INHALER INH SCH ×4 (05:49→18:01)
[2022-04-09] MEDS: PANTOprazole 40 MG TAB PO SCH (06:30)
[2022-04-09 06:52] LABS: Basophils # (auto) 0.03 K/uL (0-0.2); Basophils % (auto) 0.2 %; Eosinophils # (auto) 0.01 K/uL (0-0.50); Eosinophils % (auto) 0.1 %; Hematocrit (blood only) 35.1 % (34.1-44.9); Hemoglobin 12.4 g/dl (12.0-16.0); Immature Granulocytes # (auto) 0.12 K/uL (0.00-0.02); Immature Granulocytes % (auto) 0.9 %; Lymphocytes # (auto) 1.02 K/uL (1.2-3.4); Lymphocytes % (auto) 8.1 %; Mean Corpuscular Hemoglobin 30.1 pg (25.0-34.0); Mean Corpuscular Hgb Conc 35.3 g/dL (32.0-36.0); Mean Corpuscular Volume 85.2 fL (80.0-100.0); Mean Platelet Volume 9.1 fL (9.4-12.3); Monocytes # (auto) 0.82 K/uL (0.24-0.82); Monocytes % (auto) 6.5 %; Neutrophils # (auto) 10.67 K/uL (1.4-6.5); Neutrophils % (auto) 84.2 %; Platelet Count 317 K/uL (130-400); RDW Coefficient of Variation 12.8 % (11.5-14.5); RDW Standard Deviation 39.5 fL (36.4-46.3); Red Blood Count 4.12 M/uL (3.93-5.22); White Blood Count 12.67 K/ul (4.8-10.8)
[2022-04-09 07:25] LABS: Albumin Level 3.1 gm/dl (3.4-5.0); BUN Creatinine Ratio 34.2 (10-20); Bilirubin,Total 0.7 mg/dl (0.2-1.0); C Reactive Protein 20.85 mg/dl (0-0.5); Calcium 8.3 mg/dl (8.5-10.1); Creatinine Clr Calc Pharmacy 191.6 ml/min; Est GFR (African American) 142.2 ml/min; Est GFR (Non-African American) 122.7 ml/min; Globulin 3.1 gm/dl (2.5-4.0); Magnesium 1.6 mg/dl (1.7-2.4); Potassium 3.2 mmol/L (3.5-5.1); Total Protein 6.2 gm/dl (6.0-8.3)
[2022-04-09] MEDS ORDERED: VANCOMYCIN LEVEL ONE (07:30)
[2022-04-09 07:46] LABS: Appearance Urine Turbid (Clear); Bacteria Urine Automated Negative (Negative); Blood Urine Negative (Negative); Color Urine Dark Yellow; Epithelial Cell Urine Auto >30 /lpf (0-5); Glucose Urine UA Negative (Negative); Ketones Urine 4+ (Negative); Leukocyte Esterase Urine Negative (Negative); Nitrite Urine Negative (Negative); Protein Urine 1+ (Negative); Urobilinogen Urine Negative (Negative); pH Urine 6.5 (4.5-7.5)
[2022-04-09 07:49] LABS: Bilirubin Urine 1+ (Negative)
[2022-04-09 08:05] LABS: Amorphous Sediment Urine Present (None Prsent)
[2022-04-09 08:13] LABS: Cast Urine Automated 0 /lpf (0-5); Mucus Urine Present (None Prsent)
[2022-04-09] MEDS ORDERED: MULTI VIT W/MINERALS LIQUID 15 ML UDP PO SCH (09:00)
[2022-04-09] MEDS ORDERED: buPROPion XL 300 MG TABCR PO SCH (09:00)
[2022-04-09] MEDS: GABAPENTIN 400 MG CAP PO SCH ×2 (09:16→20:53)
[2022-04-09] MEDS: dexAMETHasone 6 MG in SYRINGE 0 ML IV SCH (09:16)
[2022-04-09] MEDS: VITAMIN D 50 MCG PO SCH (09:17)
[2022-04-09] MEDS: [UNRECOGNIZED DRUG - OTHER] PO SCH (09:18)
[2022-04-09] MEDS: VITAMIN C 1000 MG PO SCH (09:18)
[2022-04-09] MEDS: MULTIVITAMIN PO SCH (09:19)
[2022-04-09] MEDS: ENOXAPARIN INJ 40 MG/0.4 ML SYR SQ SCH ×2 (09:21→20:52)
[2022-04-09] MEDS: lamoTRIgine 25 MG TAB PO SCH ×2 (09:22→20:53)
[2022-04-09] MEDS: FLUoxetine HCL 20 MG CAP PO SCH (09:22)
[2022-04-09] MEDS: BACLOFEN 10 MG TAB PO SCH ×3 (09:23→20:53)
[2022-04-09] MEDS: MAGNESIUM OXIDE 400 MG TAB PO SCH (09:23)
[2022-04-09] MEDS: lamoTRIgine 100 MG TAB PO SCH ×2 (09:24→20:53)
[2022-04-09] MEDS: NON-FORMULARY MEDICATION (Tiotropium-Olodaterol [Stiolto Respimat] 2.5-2.5 mcg/actuation M INH SCH (09:25)
[2022-04-09] MEDS ORDERED: POTASSIUM CHLORIDE CRTAB 20 MEQ TABCR PO SCH (09:55)
[2022-04-09] MEDS ORDERED: oxyCODONE HCL IR 5 MG TAB (IMMEDIATE RELEASE) PO PRN (10:23)
[2022-04-09] MEDS: MAGNESIUM SULFATE / D5W 1 GM/100 ML BAG IV SCH ×2 (11:21→13:50)
[2022-04-09] MEDS: REMDESIVIR 100 MG in SODIUM CHLORIDE 0.9% 230 ML IV SCH (11:22)
[2022-04-09] MEDS: NICOTINE 14 MG/24 HR PATCH TD SCH (13:02)
[2022-04-09] MEDS: ARIPiprazole 10 MG TAB PO SCH (13:02)
[2022-04-09] MEDS: POTASSIUM CHLORIDE 20 MEQ/15 ML UDC PO SCH ×2 (13:02→20:53)
[2022-04-09] MEDS: oxyCODONE HCL IR 5 MG TAB (IMMEDIATE RELEASE) PO PRN ×2 (17:23→21:30)
[2022-04-09] MEDS: DICLOFENAC SOD 1% GEL 100 GM TUBE EXT SCH ×2 (17:59→20:52)
[2022-04-09] MEDS ORDERED: METHOCARBAMOL 500 MG TABLET PO PRN (19:51)
--- NOTE | 2022-04-09 21:31 | Hospitalist Progress Note ---
Date of Service April 09, 2022 Assessment & Plan (1) Acute respiratory failure with hypoxia: Plan: 2nd to COVID-19 pneumonia. Can't rule out that she had element of acute CHF - JVD was present on exam, mild elevation in BNP, etc. Previously was taking large doses of lasix at home. Pt reports hasn't had lasix in weeks. Has known COPD. Cont steroids, Remdesivir, etc for COVID-19 pneumonia. Volume status looks better today s/p IV lasix yesterday. O2 has been weaned off. (2) Pneumonia due to COVID-19 virus: Plan: mod-severe. CRP at admission 25; it is modestly improved today to 20. She is remarkably better today and O2 weaned off. Day #3 of 5 of IV Remdesivir. Day #3 of 10 of Dexamethasone 6mg daily. Cont flutter valve. Cont incentive lynn. cont side positioning. cont scheduled bronchodilators. defer on additional diuretics today. cxr yesterday with stable b/l infiltrates. cont airborne precautions. patient is about 5-6 days into her illness course. likely exposure to COVID while at [facility] (roommate tested + for COVID at [facility]). procal negative x 2 this admission - stop all abx; bacterial superinfection unlikely. will check a d-dimer in am and consider doppler of LLE due to multiple risk factors for DVT in setting of her COVID illness repeat CRP am (3) Acute hyponatremia: Plan: Sodium 127 upon admission Was given isotonic fluid and Na improved to 130 but appeared volume overloaded yesterday fluid stopped one-time IV lasix given yesterday today she appears more euvolemic urine osm quite high serum osm low urine Na high element of SIADH from COVID-19 infection? element of SIADH from psychotropic medications? fluid restrict to 1500cc/day BMP in am if Na remains low consider NaCL supplementation (4) Cerebral palsy: Plan: baclofen 10mg TID for LLE contracture patient has very little use of both legs - does not ambulate resume robaxin 500mg prn due to severe contracture & increased tone of legs, L>R (5) COPD (chronic obstructive pulmonary disease): Plan: 2nd long-standing tobacco usage cont usual daily inhalers cont bronchodilators scheduled pulmonary toilet dexamethasone IV see above (6) Seizure disorder: Plan: in light of known seizure d/o would stop Wellbutrin Cont gabapentin Cont lamictal I spoke with pt's mother by phone - pt has had seizures for many years but has not had one in 2-3 years seizure precautions (7) Anxiety with depression: Plan: I received her med rec from [facility] Oddly her external med history from her pharmacy shows she only received refills up until 12/2021 on all meds but nothing since will need to call her providers and/or pharmacy to verify what she is actually taking the patient and her mother both state compliance with all meds we have resumed - abilify 20mg daily prozac 40mg daily (supposed to be BID but will hold off until verification of meds) lamictal 150mg BID STOP wellbutrin given known seizure d/o (8) Bipolar disorder: Plan: as above (9) PTSD (post-traumatic stress disorder): (10) GERD (gastroesophageal reflux disease): Plan: Continue pantoprazole (11) Vitamin D insufficiency: Plan: 25-OH level = 27 start vitamin D 2000 IU daily (12) Femur fracture, left: Plan: by report nonoperative management was seen/evaluated at [facility] earlier this month for such request records and imaging from 03/2022 admission to [facility] (13) Contracture of muscle, left thigh: Plan: very oddly patient was taking baclofen, flexeril, and methocarbamol all at once?? to avoid polypharmacy simply resume baclofen 10mg TID and use methocarbamol PRN only (14) DVT prophylaxis: Plan: due to high risk nature of VTE in setting of bed-bound status, COVID, etc -- use lovenox 40mg BID consider doppler LLE check a baseline d-dimer Plan pt's mother updated extensively by phone yesterday and today mother lives in [place] - currently has COVID herself Admission and Anticipated Discharge Date Admission Date: April 08, 2022 Subjective tele stable overnight she feels MUCH better today dyspnea resolved no orthopnea no PND she is still coughing minimal sputum main complaint is that of left leg pain oxycodone helps pain started early March just prior to admission to [facility] pain is worst anterior distal left thigh she blames pain on contracture does confirm she was taking baclofen AND robaxin concurrently prior to this admission I spoke with pt's mother - patient apparently had MRI of l-spine and other imaging of leg at [facility] recently even had evaluation by neurosurgery while at [facility] for l-spine issues?? Review of Systems Review of Systems: gen - no fevers, no chills; appetite better today cv - no chest pain pulm - no dyspnea GI - no N/V Physical Exam Physical Exam: gen - looks MUCH better today mouth - MM dry neck - no JVD heart - RRR, s1 s2, no murmur lungs - diffuse dry crackles R>L bases; no wheeze; increased work of breathing and tachypnea resolved abd - soft NT ND BS+ ext - contracture of LLE, pulses 2+ b/l feet, no edema skin - no rash neuro - increased tone LLE; unable to straighten her left leg due to contracture psych - a/o x 3; anxiety improved Results & Data Results & Data ([facility]) Vital Signs (Past 12 Hours) Vital Signs Temp Pulse Pulse Resp BP Pulse Ox O2 Del Method 04/09/22 19:54 37.5 C 80 18 115/72 99 Room Air 04/09/22 18:08 76 04/09/22 18:02 82 16 96 Room Air 04/09/22 15:23 81 20 157/85 H 97 Room Air 04/09/22 13:52 79 04/09/22 13:31 Nasal Cannula 04/09/22 11:33 80 18 100 Nasal Cannula 04/09/22 11:31 84 20 138/83 100 Nasal Cannula O2 Flow Rate 04/09/22 19:54 04/09/22 18:08 04/09/22 18:02 04/09/22 15:23 04/09/22 13:52 04/09/22 13:31 2 04/09/22 11:33 5 04/09/22 11:31 5 Laboratory Results Laboratory Results - last 24 hr 04/09/22 04/09/22 04/09/22 05:55 05:55 05:55 WBC 12.67 H RBC 4.12 Hgb 12.4 Hct 35.1 MCV 85.2 MCH 30.1 MCHC 35.3 RDW Std Deviation 39.5 RDW Coeff of Ronaldo 12.8 Plt Count 317 MPV 9.1 L Immature Gran % (Auto) 0.9 Neut % (Auto) 84.2 Lymph % (Auto) 8.1 Gibson % (Auto) 6.5 Eos % (Auto) 0.1 Baso % (Auto) 0.2 Neut # (Auto) 10.67 H Lymph # (Auto) 1.02 L Gibson # (Auto) 0.82 Eos # (Auto) 0.01 Baso # (Auto) 0.03 Immature Gran # (Auto) 0.12 H Sodium 129 L Potassium 3.2 L Chloride 97 L Carbon Dioxide 21 Anion Gap 11 BUN 13 Creatinine 0.38 L Est Cr Clr Drug Dosing 191.6 Est GFR ( Amer) 142.2 Est GFR (Non-Af Amer) 122.7 BUN/Creatinine Ratio 34.2 H Glucose 58 L POC Glucose Calcium 8.3 L Magnesium 1.6 L Total Bilirubin 0.7 AST 36 ALT 34 Alkaline Phosphatase 125 H Total Creatine Kinase 183 C-Reactive Protein 20.85 H Total Protein 6.2 Albumin 3.1 L Globulin 3.1 Albumin/Globulin Ratio 1.0 Procalcitonin 0.10 Urine Color Urine Appearance Urine pH Ur Specific [place] Urine Protein Urine Glucose (UA) Urine Ketones Urine Blood Urine Nitrite Urine Bilirubin Urine Urobilinogen Ur Leukocyte Esterase Urine WBC (Auto) Urine RBC (Auto) U Hyaline Cast (Auto) U Epithel Cells (Auto) Urine Bacteria (Auto) Ur Renal Epithelial Cell Urine Crystals Amorphous Sediment Urine Mucus Urine Osmolality Ur Random Sodium 04/09/22 04/09/22 04/09/22 06:25 06:25 06:25 WBC RBC Hgb Hct MCV MCH MCHC RDW Std Deviation RDW Coeff of Ronaldo Plt Count MPV Immature Gran % (Auto) Neut % (Auto) Lymph % (Auto) Gibson % (Auto) Eos % (Auto) Baso % (Auto) Neut # (Auto) Lymph # (Auto) Gibson # (Auto) Eos # (Auto) Baso # (Auto) Immature Gran # (Auto) Sodium Potassium Chloride Carbon Dioxide Anion Gap BUN Creatinine Est Cr Clr Drug Dosing Est GFR ( Amer) Est GFR (Non-Af Amer) BUN/Creatinine Ratio Glucose POC Glucose Calcium Magnesium Total Bilirubin AST ALT Alkaline Phosphatase Total Creatine Kinase C-Reactive Protein Total Protein Albumin Globulin Albumin/Globulin Ratio Procalcitonin Urine Color Dark Yellow Urine Appearance Turbid A Urine pH 6.5 Ur Specific [place] 1.030 Urine Protein 1+ H Urine Glucose (UA) Negative Urine Ketones 4+ H Urine Blood Negative Urine Nitrite Negative Urine Bilirubin 1+ H Urine Urobilinogen Negative Ur Leukocyte Esterase Negative Urine WBC (Auto) 5-10 H Urine RBC (Auto) 5-10 H U Hyaline Cast (Auto) 0 U Epithel Cells (Auto) >30 H Urine Bacteria (Auto) Negative Ur Renal Epithelial Cell Not Reportable Urine Crystals Not Reportable Amorphous Sediment Present A Urine Mucus Present A Urine Osmolality 620 Ur Random Sodium 87 04/09/22 21:01 WBC RBC Hgb Hct MCV MCH MCHC RDW Std Deviation RDW Coeff of Ronaldo Plt Count MPV Immature Gran % (Auto) Neut % (Auto) Lymph % (Auto) Gibson % (Auto) Eos % (Auto) Baso % (Auto) Neut # (Auto) Lymph # (Auto) Gibson # (Auto) Eos # (Auto) Baso # (Auto) Immature Gran # (Auto) Sodium Potassium Chloride Carbon Dioxide Anion Gap BUN Creatinine Est Cr Clr Drug Dosing Est GFR ( Amer) Est GFR (Non-Af Amer) BUN/Creatinine Ratio Glucose POC Glucose 88 Calcium Magnesium Total Bilirubin AST ALT Alkaline Phosphatase Total Creatine Kinase C-Reactive Protein Total Protein Albumin Globulin Albumin/Globulin Ratio Procalcitonin Urine Color Urine Appearance Urine pH Ur Specific [place] Urine Protein Urine Glucose (UA) Urine Ketones Urine Blood Urine Nitrite Urine Bilirubin Urine Urobilinogen Ur Leukocyte Esterase Urine WBC (Auto) Urine RBC (Auto) U Hyaline Cast (Auto) U Epithel Cells (Auto) Urine Bacteria (Auto) Ur Renal Epithelial Cell Urine Crystals Amorphous Sediment Urine Mucus Urine Osmolality Ur Random Sodium PG Care Time/CCT Total # of Minutes Spent Total Time Spent with Patient: Total time spent is greater than 50% in coordination of care (as documented) at patient's floor/unit and/or counseling patient: Coding Level of Care Code 24286 Subseq Hosp Care Lvl 3 Diagnoses Acute respiratory failure with hypoxia J96.01 Pneumonia due to COVID-19 virus U07.1; J12.82 Acute hyponatremia E87.1 Cerebral palsy G80.9 COPD (chronic obstructive pulmonary disease) J44.9 Seizure disorder G40.909 Anxiety with depression F41.8 Bipolar disorder F31.9 PTSD (post-traumatic stress disorder) F43.10 GERD (gastroesophageal reflux disease) K21.9 Vitamin D insufficiency E55.9 Femur fracture, left S72.92XA Contracture of muscle, left thigh M62.452 DVT prophylaxis Z29.9
[2022-04-10] MEDS: oxyCODONE HCL IR 5 MG TAB (IMMEDIATE RELEASE) PO PRN ×4 (02:53→21:32)
[2022-04-10] MEDS: ALBUTEROL HFA 8 GM INHALER INH SCH (06:03)
[2022-04-10] MEDS: PANTOprazole 40 MG TAB PO SCH (06:31)
[2022-04-10 07:08] LABS: C Reactive Protein 17.28 mg/dl (0-0.5); Calcium 8.4 mg/dl (8.5-10.1); Creatinine Clr Calc Pharmacy 173.4 ml/min; Est GFR (African American) 137.5 ml/min; Est GFR (Non-African American) 118.7 ml/min; Magnesium 1.9 mg/dl (1.7-2.4); Potassium 3.8 mmol/L (3.5-5.1)
[2022-04-10] MEDS: DICLOFENAC SOD 1% GEL 100 GM TUBE EXT SCH ×4 (07:29→21:32)
[2022-04-10] MEDS: POTASSIUM CHLORIDE 20 MEQ/15 ML UDC PO SCH ×4 (07:31→21:37)
[2022-04-10] MEDS: NON-FORMULARY MEDICATION (Tiotropium-Olodaterol [Stiolto Respimat] 2.5-2.5 mcg/actuation M INH SCH (07:34)
[2022-04-10] MEDS: FLUoxetine HCL 20 MG CAP PO SCH (07:34)
[2022-04-10] MEDS: lamoTRIgine 100 MG TAB PO SCH ×2 (07:34→21:31)
[2022-04-10] MEDS: GABAPENTIN 400 MG CAP PO SCH ×2 (07:35→21:30)
[2022-04-10] MEDS: ARIPiprazole 10 MG TAB PO SCH (07:35)
[2022-04-10] MEDS: BACLOFEN 10 MG TAB PO SCH ×3 (07:36→21:32)
[2022-04-10] MEDS: lamoTRIgine 25 MG TAB PO SCH ×2 (07:36→21:37)
[2022-04-10] MEDS: NICOTINE 14 MG/24 HR PATCH TD SCH (07:37)
[2022-04-10] MEDS: MAGNESIUM OXIDE 400 MG TAB PO SCH (07:37)
[2022-04-10] MEDS: [UNRECOGNIZED DRUG - OTHER] PO SCH (07:38)
[2022-04-10] MEDS: VITAMIN C 1000 MG PO SCH (07:39)
[2022-04-10] MEDS: MULTIVITAMIN PO SCH (07:40)
[2022-04-10] MEDS: VITAMIN D 50 MCG PO SCH (07:41)
[2022-04-10 08:01] LABS: D Dimer 1050 ug/L FEU (0-500)
[2022-04-10] MEDS: dexAMETHasone 6 MG in SYRINGE 0 ML IV SCH (09:28)
[2022-04-10] MEDS: ENOXAPARIN INJ 40 MG/0.4 ML SYR SQ SCH ×2 (09:29→21:31)
--- NOTE | 2022-04-10 09:29 | Ultrasound Report ---
ULTRASOUND LEFT LOWER EXTREMITY VENOUS CLINICAL HISTORY: Left leg/thigh pain. COMPARISON STUDY: No priors. TECHNIQUE: Real-time, grayscale, and color Doppler sonography of the deep veins of the left lower ext remity was performed from the inguinal crease to the calf. Compression and augmentation were utilized . FINDINGS: There is no sonographic evidence of deep venous thrombosis identified in the left lower ext remity. The common femoral, superficial femoral, and popliteal veins are patent and normally compress ible. The greater saphenous vein and the profunda femoris vein at the junction with the common femora l vein are clear. The visualized calf veins are patent. IMPRESSION: There is no sonographic evidence of deep venous thrombosis identified in the left lower e xtremity. ACT 112: Negative or not required by law. Electronically signed by: Jimmy Braun M.D. 04/10/2022 9:27 AM
[2022-04-10] MEDS: ALBUTEROL HFA 8 GM INHALER INH PRN (11:24)
[2022-04-10] MEDS: REMDESIVIR 100 MG in SODIUM CHLORIDE 0.9% 230 ML IV SCH (12:18)
--- NOTE | 2022-04-10 17:27 | Hospitalist Progress Note ---
Date of Service April 10, 2022 Assessment & Plan (1) Acute respiratory failure with hypoxia: Plan: 2nd to COVID-19 pneumonia. Can't rule out that she had element of acute CHF - JVD was present on exam, mild elevation in BNP, etc. Previously was taking large doses of lasix at home. Pt reports hasn't had lasix in weeks. Has known COPD. Cont steroids, Remdesivir, etc for COVID-19 pneumonia. Volume status looks better today s/p IV lasix 2 days ago O2 has been weaned off. doing better overall (2) Pneumonia due to COVID-19 virus: Plan: mod-severe. CRP at admission 25; it is modestly improved today to 20. She is remarkably better today and O2 weaned off. Day #4 of 5 of IV Remdesivir. Day #4 of 10 of Dexamethasone 6mg daily. Cont flutter valve. Cont incentive lynn. cont side positioning. cont scheduled bronchodilators. defer on additional diuretics today. on room air and looking good when I see her cxr yesterday with stable b/l infiltrates. cont airborne precautions. patient is about 6--7 days into her illness course. likely exposure to COVID while at [facility] (roommate tested + for COVID at [facility]). procal negative x 2 this admission - no clear role for abx; bacterial superinfection unlikely. venous Doppler negative (3) Acute hyponatremia: Plan: Sodium 127 upon admission now 128 urine osm quite high serum osm low urine Na high element of SIADH from COVID-19 infection? element of SIADH from psychotropic medications? continue tofluid restrict to 1500cc/day BMP in am asymptomaticneeds ongoing follow-up, but can be done at rehab (4) Cerebral palsy: Plan: baclofen 10mg TID for LLE contracture patient has very little use of both legsbut notes that she could pivot/transfer resume robaxin 500mg prn due to severe contracture & increased tone of legs, L>R (5) COPD (chronic obstructive pulmonary disease): Plan: 2nd long-standing tobacco usage cont usual daily inhalers cont bronchodilators scheduled pulmonary toilet dexamethasone IV see above (6) Seizure disorder: Plan: in light of known seizure d/o would stop Wellbutrin Cont gabapentin Cont lamictal (7) Anxiety with depression: Plan: I received her med rec from [facility] discrepancies between med rec and refills: we have resumed - abilify 20mg daily prozac 40mg daily lamictal 150mg BID STOP wellbutrin given known seizure d/o (8) Bipolar disorder: Plan: as above (9) PTSD (post-traumatic stress disorder): (10) GERD (gastroesophageal reflux disease): Plan: Continue pantoprazole (11) Vitamin D insufficiency: Plan: 25-OH level = 27 vitamin D 2000 IU daily (12) Femur fracture, left: Plan: by report nonoperative management was seen/evaluated at [facility] earlier this month for such request records and imaging from 03/2022 admission to [facility] (13) Contracture of muscle, left thigh: Plan: very oddly patient was taking baclofen, flexeril, and methocarbamol all at once?? to avoid polypharmacy simply resumed baclofen 10mg TID and use methocarbamol PRN only (14) DVT prophylaxis: Plan: due to high risk nature of VTE in setting of bed-bound status, COVID, etc -- using lovenox 40mg BID Plan Stable for rehabUP apparently is telling case management that needs a want my number to call me to discuss the caseI promptly gives this to case management and asked them to call me today given that the patient is stable for discharge, but I am told that they are telling me they will not call until tomorrow. This means we are needlessly keeping the patient inpatient when she could be returning to her rehab journey, exposing her to a higher risk of no socomial infection, slowing her rehab, and compounding her deconditioning simply for bureaucratic reasons of not wanting to call today. Admission and Anticipated Discharge Date Admission Date: April 08, 2022 Subjective feels good. Still has a bit of a coughnotes that she figures this will take a while to get better. But not short of breath anymore. Feels wellwould like to return to rehab. Notes that the last several months she has been able to stand and pivot largely is wheelchair-boundbut she would like to get back to being able to be at her baseline level of function. Notes she had MRIs at [facility] awaiting records. Review of Systems Review of Systems: All systems reviewed & are unremarkable except as noted in HPI & below Physical Exam Physical Exam: In general she is awake and alert pleasant no distress. HEENT normocephalic atraumatic mucous membranes moist. Lungs are clear to auscultation bilaterally no rales rhonchi or wheeze with good effort. Cardio is regular no rubs murmurs gallops. Extremities show no cyanosis clubbing or edema, no calf tenderness. Results & Data Results & Data ([facility]) Vital Signs (Past 12 Hours) Vital Signs Temp Pulse Pulse Resp BP Pulse Ox Pulse Ox 04/10/22 16:18 85 04/10/22 15:50 85 18 171/90 H 91 04/10/22 15:28 89 L 04/10/22 11:25 97.2 F L 82 18 126/79 100 04/10/22 09:57 04/10/22 09:37 98.1 F 04/10/22 07:51 100 04/10/22 07:27 84 16 120/77 04/10/22 06:04 71 20 99 Pulse Ox Pulse Ox O2 Del Method O2 Flow Rate 04/10/22 16:18 04/10/22 15:50 Nasal Cannula 2 04/10/22 15:28 88 L 85 L 04/10/22 11:25 Room Air 04/10/22 09:57 Room Air 04/10/22 09:37 04/10/22 07:51 Nasal Cannula 04/10/22 07:27 04/10/22 06:04 Nasal Cannula 2 PG Care Time/CCT Total # of Minutes Spent Total Time Spent with Patient: Total time spent is greater than 50% in coordination of care (as documented) at patient's floor/unit and/or counseling patient: Coding Level of Care Code 88220 Subseq Hosp Care Lvl 3 Diagnoses Acute respiratory failure with hypoxia J96.01 Pneumonia due to COVID-19 virus U07.1; J12.82 Acute hyponatremia E87.1 Cerebral palsy G80.9 COPD (chronic obstructive pulmonary disease) J44.9 Seizure disorder G40.909 Anxiety with depression F41.8 Bipolar disorder F31.9 PTSD (post-traumatic stress disorder) F43.10 GERD (gastroesophageal reflux disease) K21.9 Vitamin D insufficiency E55.9 Femur fracture, left S72.92XA Contracture of muscle, left thigh M62.452 DVT prophylaxis Z29.9
[2022-04-10] MEDS: LIDOCAINE 5% 1 PATCH TD SCH (18:12)
[2022-04-11] MEDS: oxyCODONE HCL IR 5 MG TAB (IMMEDIATE RELEASE) PO PRN ×2 (02:20→07:27)
[2022-04-11] MEDS: PANTOprazole 40 MG TAB PO SCH (06:38)
[2022-04-11] MEDS ORDERED: LORazepam 0.5 MG in SYRINGE 0 ML IV STA (07:52)
[2022-04-11] MEDS: ALBUTEROL HFA 8 GM INHALER INH PRN (08:31)
[2022-04-11] MEDS: GABAPENTIN 400 MG CAP PO SCH (08:32)
[2022-04-11] MEDS: ARIPiprazole 10 MG TAB PO SCH (08:32)
[2022-04-11] MEDS: MAGNESIUM OXIDE 400 MG TAB PO SCH (08:32)
[2022-04-11] MEDS: FLUoxetine HCL 20 MG CAP PO SCH (08:32)
[2022-04-11] MEDS: lamoTRIgine 100 MG TAB PO SCH (08:33)
[2022-04-11] MEDS: ENOXAPARIN INJ 40 MG/0.4 ML SYR SQ SCH (08:33)
[2022-04-11] MEDS: VITAMIN D 50 MCG PO SCH (08:33)
[2022-04-11] MEDS: BACLOFEN 10 MG TAB PO SCH ×2 (08:33→13:02)
[2022-04-11] MEDS: lamoTRIgine 25 MG TAB PO SCH (08:33)
[2022-04-11] MEDS: NICOTINE 14 MG/24 HR PATCH TD SCH (08:34)
[2022-04-11] MEDS: NON-FORMULARY MEDICATION (Tiotropium-Olodaterol [Stiolto Respimat] 2.5-2.5 mcg/actuation M INH SCH (08:35)
[2022-04-11] MEDS: [UNRECOGNIZED DRUG - OTHER] PO SCH (08:35)
[2022-04-11] MEDS: MULTIVITAMIN PO SCH (08:35)
[2022-04-11] MEDS: VITAMIN C 1000 MG PO SCH (08:37)
[2022-04-11] MEDS: LIDOCAINE 5% 1 PATCH TD SCH (08:39)
[2022-04-11] MEDS: DICLOFENAC SOD 1% GEL 100 GM TUBE EXT SCH ×2 (08:39→12:47)
[2022-04-11] MEDS: POTASSIUM CHLORIDE 20 MEQ/15 ML UDC PO SCH ×2 (08:43→14:05)
[2022-04-11] MEDS ORDERED: LORazepam 0.5 MG TAB PO PRN (08:44)
[2022-04-11] MEDS: dexAMETHasone 6 MG in SYRINGE 0 ML IV SCH (09:47)
[2022-04-11] MEDS ORDERED: CYCLOBENZAPRINE HCL 10 MG TAB PO STA (10:42)
[2022-04-11] MEDS ORDERED: METHOCARBAMOL 500 MG TABLET PO ONE (11:15)
[2022-04-11] MEDS ORDERED: DICLOFENAC SOD 1% GEL 100 GM TUBE EXT ONE (11:15)
[2022-04-11 11:39] LABS: Basophils # (auto) 0.03 K/uL (0-0.2); Basophils % (auto) 0.2 %; Eosinophils # (auto) 0.01 K/uL (0-0.50); Eosinophils % (auto) 0.1 %; Hematocrit (blood only) 34.8 % (34.1-44.9); Hemoglobin 12.4 g/dl (12.0-16.0); Immature Granulocytes # (auto) 0.35 K/uL (0.00-0.02); Immature Granulocytes % (auto) 2.1 %; Lymphocytes # (auto) 0.78 K/uL (1.2-3.4); Lymphocytes % (auto) 4.7 %; Mean Corpuscular Hemoglobin 30.3 pg (25.0-34.0); Mean Corpuscular Hgb Conc 35.6 g/dL (32.0-36.0); Mean Corpuscular Volume 85.1 fL (80.0-100.0); Mean Platelet Volume 9.2 fL (9.4-12.3); Monocytes # (auto) 0.65 K/uL (0.24-0.82); Monocytes % (auto) 3.9 %; Neutrophils # (auto) 14.93 K/uL (1.4-6.5); Platelet Count 389 K/uL (130-400); RDW Coefficient of Variation 12.9 % (11.5-14.5); RDW Standard Deviation 40.4 fL (36.4-46.3); Red Blood Count 4.09 M/uL (3.93-5.22); White Blood Count 16.75 K/ul (4.8-10.8)
[2022-04-11 12:03] LABS: C Reactive Protein 13.4 mg/dl (0-0.5); Calcium 8.3 mg/dl (8.5-10.1); Creatinine Clr Calc Pharmacy 177.4 ml/min; Est GFR (African American) 138.6 ml/min; Est GFR (Non-African American) 119.6 ml/min; Magnesium 1.7 mg/dl (1.7-2.4); Potassium 3.8 mmol/L (3.5-5.1)
[2022-04-11] MEDS: REMDESIVIR 100 MG in SODIUM CHLORIDE 0.9% 230 ML IV SCH (12:46)
[2022-04-11] MEDS ORDERED: Nursing to Pharmacy Communication SCH (13:45)
[2022-04-11] MEDS ORDERED: CYCLOBENZAPRINE HCL 10 MG TAB PO ONE (14:00)
[2022-04-11] MEDS ORDERED: CYCLOBENZAPRINE HCL 10 MG TAB PO SCH (16:00)
--- NOTE | 2022-04-11 16:15 | Discharge Summary ---
Date of Service April 11, 2022 Admission HPI Per Admitting Provider The patient is a 52-year-old female with a past medical history including cerebral palsy, left femur fracture, COPD, tobacco use, seizure disorder, anxiety, depression, bipolar disorder, PTSD, GERD and recent COVID-19 diagnosis. The patient had been admitted to [facility] due to left femur fracture from approximately March 14 through March 30, and was then sent to [facility] rehab in [place]. During the time when she was at [facility], she was exposed to COVID-19, however, she did not have any symptoms until about 3 to 4 days ago. Since that time she been having worsening shortness of breath and dyspnea on exertion. Repeat COVID-19 test in the emergency department was positive this evening. Other significant abnormal laboratories: WBC 14.29, sodium 127, glucose 62, AST 40, albumin 3.3. Chest x-ray showed an extensive left lower lobe infiltrate and a smaller right lower lobe infiltrate. From the emergency department the patient received the following: DuoNeb, dexamethasone 6 mg IV, vancomycin IV, cefepime IV, normal saline 500 mL bolus. Principal Diagnosis COVID-19 positive test (U07.1, COVID-19) with Acute Pneumonia (J12.89, Other viral pneumonia) (If respiratory failure or sepsis present, add as separate assessment) Discharge Exam This morning she was visibly having a panic attack, but oddly at the same time in no physical distress. Breathing rapid but controlled. Appearing uncomfortable with left leg spasms. Gentle ligamentous articular strain done with some relief of the spasm. Lungs clear to auscultation somewhat diminished but no rales rhonchi or wheeze good effort. Skin shows no rashes no pallor or icterus. Other chronic contractures noted. This afternoon on revisit she is resting comfortably no distress. HEENT normocephalic atraumatic mucous membranes moist. Breathing unlabored no accessory muscle use good effort. Skin shows no rashes no pallor or icterus. Neuro with chronic appearing contractures. Discharge Data Allergies Allergy/AdvReac Type Severity Reaction Status Date / Time No Known Allergies Allergy Unverified 04/08/22 01:57 Consultations 04/08/22 01:23 ED Decision to Admit Stat Ordered Studies 04/08/22 01:01 CT chest without contrast [CT chest diagnostic wo con] Stat 04/10/22 07:00 US venous doppler LE LT Routine Hospital Course (1) Acute respiratory failure with hypoxia: 2nd to COVID-19 pneumonia. Can't rule out that she had element of acute CHF - JVD was present on exam, mild elevation in BNP, etc. Previously was taking large doses of lasix at home. Pt reports hasn't had lasix in weeks. Has known COPD. Safe for return to rehab. O2 mostly weaned off, at times needing small amount of supplemental oxygenwould continue to titrate at rehab hospital if needed. Continue dexamethasone for another several days. (2) Pneumonia due to COVID-19 virus: mod-severe. CRP at admission 25; it is modestly improved today to 20. She is remarkably better today and O2 weaned off. Treated inpatient with remdesivir and dexamethasone, would continue dexamethasone for another several days at rehab Cont flutter valve. Cont incentive lynn. cont inhalers patient is about 7-8 days into her illness course. likely exposure to COVID while at [facility] (roommate tested + for COVID at [facility]). procal negative x 2 this admission - no clear role for abx; bacterial superinfection unlikely. venous Doppler negative (3) Acute hyponatremia: Sodium 127 upon admission now 1130 urine osm quite high serum osm low urine Na high element of SIADH from COVID-19 infection? element of SIADH from psychotropic medications? Essentially is asymptomatic. Periodic basic metabolic panel at rehab (4) Cerebral palsy: With chronic contracturesmuscle relaxants had been reduced due to concern on polypharmacy. After discussion with patient, she notes she has been on some semblance of her current med regimen for about 20 yearsresumedcontractures improved. (5) COPD (chronic obstructive pulmonary disease): 2nd long-standing tobacco usage cont usual daily inhalers cont bronchodilators scheduled pulmonary toilet dexamethasone see above (6) Seizure disorder: in light of known seizure d/o would stop Wellbutrin Cont gabapentin Cont lamictal (7) Anxiety with depression: Panic attacks today. In discussion, she is able to relate that today the leg muscle spasms are the triggerand improved after alleviation of the leg muscle spasms. Continue home meds, for the short-term added Ativan 0.5 mg up to 3 times daily as needed anxiety, but discussed with patient's mother that this obviously would be dangerous long-term solutioni.e. would continue benzodiazepines no longer than when she is discharged from rehab (8) Bipolar disorder: as above (9) PTSD (post-traumatic stress disorder): (10) GERD (gastroesophageal reflux disease): Continue pantoprazole (11) Vitamin D insufficiency: 25-OH level = 27 vitamin D 2000 IU daily (12) Femur fracture, left: by report nonoperative management was seen/evaluated at [facility] earlier this month for such request records and imaging from 03/2022 admission to [facility] (13) Contracture of muscle, left thigh: home meds, OMT - improved some (14) DVT prophylaxis: due to high risk nature of VTE in setting of bed-bound status, COVID, etc -- using lovenox 40mg BID - defer to protocols at [facility] on return to rehab Plan return to rehab today Total Time Total Time Spent Total Time Spent (In Minutes): >30 Discharge Plan Discharge Items Patient Disposition: Transfer Inpatient Rehab Fac Reason For Visit: ACUTE RESP FAIL W/ HYPOXIA, COVID-19, SEC.VU PNEU Discharge Diagnosis: COVID Activity: Resume your previous activity Non-emergency contact: Primary Care Provider and Psychiatrist Call non-emergency contact if: you have any medication questions Follow-up/Referrals: Germain Skaggs MD [Primary Care Provider] - Diet: Regular Addtl Attending Provider Instructions: Still requiring supplemental oxygen at times for COVID, at times down to room air. Please titrate appropriately. Significant anxietyplease have psychology work with patient, and as she gets closer to discharge, please ensure coordination with psychiatry/psychology as an outpatient Pending Studies at Discharge: No Stand-Alone Forms: My [facility] Skilled Items Patient informed of condition?: Yes DNR: No Discharge Level of Care: Acute rehab Communicable Disease: Yes Discharge Prognosis: Improving Lines: None Urinary Catheter: No Medications and DC Order Prescriptions: New lorazepam 0.5 mg Tablet 0.5 mg PO TID PRN (Reason: anxiety) Qty: 10 0RF diclofenac sodium [Voltaren Arthritis Pain] 1 % Gel 4 g EXT QID Qty: 100 0RF Continued cyclobenzaprine 10 mg Tablet 10 mg PO Q8 cholecalciferol (vitamin D3) [Vitamin D3] 50 mcg (2,000 unit) Capsule 50 mcg PO DAILY baclofen 10 mg Tablet 10 mg PO TID fluoxetine 40 mg capsule 40 mg PO BID ascorbic acid (vitamin C) 1,000 mg Tablet 1 g PO DAILY gabapentin 400 mg capsule 400 mg PO BID enoxaparin 40 mg/0.4 mL Syringe 40 mg SUBCUT DAILY aripiprazole 20 mg tablet 20 mg PO DAILY bupropion HCl 300 mg tablet extended release 24 hr 300 mg PO DAILY methocarbamol 500 mg Tablet 1,000 mg PO QID lamotrigine [Lamictal] 150 mg Tablet 150 mg PO Q12 nicotine 14 mg/24 hr Patch 24 Hour 1 patch TRANSDERMAL DAILY sennosides-docusate sodium [Senna with Docusate Sodium] 8.6-50 mg Tablet 12 tab-cap PO DAILY pantoprazole 40 mg Tablet,Delayed Release (Dr/Ec) 40 mg PO DAILYBB lidocaine 5 % Adhesive Patch,Medicated 1 patch transdermal QAM Rx Instructions: apply to hip and remove in and remove at hs leaving on for 12 hours docusate sodium 100 mg Capsule 100 mg PO BID albuterol sulfate 90 mcg/actuation Hfa Aerosol Inhaler 2 puff INHALATION Q4 Rx Instructions: CFC free Vyvanse 40 mg Capsule 40 mg PO DAILY Stiolto Respimat 2.5-2.5 mcg/actuation Mist 2 puff INHALATION DAILY magnesium oxide 400 mg magnesium Tablet 400 mg PO QAM Rx Instructions: take with breakfast hydroxyzine HCl 25 mg Tablet 25 mg PO QID PRN (Reason: Anxiety) polyethylene glycol 3350 [Miralax] 17 gram/dose Powder 17 g PO .Q LUNCH PRN (Reason: Constipation) ondansetron 4 mg Tablet,Disintegrating 4 mg PO Q4 PRN (Reason: Nausea or Vomiting) Saccharomyces boulardii 250 mg Capsule 250 mg PO DAILY acetaminophen [Tylenol] 325 mg Tablet 650 mg PO Q4 PRN (Reason: pain scale 1-3) dextromethorphan-guaifenesin 20-200 mg/10 mL Liquid In Packet 105 ml PO Q6 Liquid Multivitamin 15 ml PO DAILY Magnesium Buffered 600 mg PO DAILY [place] [facility] 2 ea PO DAILY oxycodone 7.5 mg Tablet, Oral Only 7.5 mg PO Q6H Qty: 10 0RF Discontinued cefdinir 300 mg Capsule 300 mg PO ONCE Rx Instructions: start 04/07/22 stop 04/07/22 doxycycline hyclate 100 mg Capsule 100 mg PO ONCE Rx Instructions: start 04/07/22 stop 04/07/22 Discharge Orders: Discharge Order (Routine); Ordered 04/11/22 Ordered By: Abraham Leary Admission Data Admit Date/Time: 04/08/22 01:02 Attending Provider: Abraham Leary Admit Provider: Anoop James Primary Care Provider: Germain Skaggs Other Providers: Anoop James ; [facility] Coding Level of Care Code D/C DAY MANAGEMENT >30 MINS Diagnoses Acute respiratory failure with hypoxia J96.01 Pneumonia due to COVID-19 virus U07.1; J12.82 Acute hyponatremia E87.1 Cerebral palsy G80.9 COPD (chronic obstructive pulmonary disease) J44.9 Seizure disorder G40.909 Anxiety with depression F41.8 Bipolar disorder F31.9 PTSD (post-traumatic stress disorder) F43.10 GERD (gastroesophageal reflux disease) K21.9 Vitamin D insufficiency E55.9 Femur fracture, left S72.92XA Contracture of muscle, left thigh M62.452 DVT prophylaxis Z29.9
[2022-04-11] MEDS ORDERED: DICLOFENAC SOD 1% GEL 100 GM TUBE EXT SCH (17:00)
[2022-04-11] MEDS ORDERED: METHOCARBAMOL 500 MG TABLET PO SCH (17:00)
== END 2022-04-11 18:19 | DRG 177 ==
LOC: ED 22:03 → 2S 04-08 01:02 → SUATTDRO 04-08 01:02 → 2S 04-08 02:38